=== PATIENT | female | born 1935 | race Caucasian/White ===

== ENCOUNTER 2025-06-06 12:22 | Inpatient (IN) | payer MEDICARE, MEDICAID, SELFPAY ==
[2025-06-06] VITALS (10 sets, daily range): BP systolic 125–162; BP diastolic 90–112; PULSE 96–125; RESP 18–25; TEMP 36.6–37.4; O2SAT 90–98
--- NOTE | 2025-06-06 12:38 | EKG_ITS ---
[facility] Test Date: 2025-06-06 Pat Name: ARETHA SILVEIRA Department: Room: - Gender: Female Gasfitter: : [id number] Requested By: Miguel Larsen (CALVIN) Order Number: [id number] Reading MD: Miguel Larsen ([employer]) Measurements Intervals Topmost Rate: 115 P: NV: QRS: -47 QRSD: 83 T: 107 QT: 315 QTc: 436 Interpretive Statements ATRIAL FIBRILLATION WITH RAPID VENTRICULAR RESPONSE LEFT ANTERIOR FASCICULAR BLOCK [QRS AXIS <= -45, QR IN I, RS IN II] MODERATE VOLTAGE CRITERIA FOR LVH, CONSIDER NORMAL VARIANT [MEETS CRITERIA IN ONE OF: R(aVL), S(V1), R(V5), R(V5/V6)+S(V1)] ST DEVIATION AND MODERATE T-WAVE ABNORMALITY, CONSIDER LATERAL ISCHEMIA [-0.1+ mV T-WAVE IN I/aVL/V5/V6] No previous ECG available for comparison /store/S0/[id number].pdf
--- NOTE | 2025-06-06 12:42 | XR_ITS ---
Examination: AP chest single view Technique one AP portable upright chest single view Date and time: June 06, 2025, 1251 hours INDICATIONS: Chest pain difficulty breathing today. FINDINGS: Mild heart failure Mild enlargement cardiac contour. Prominent vascular congestion with perihilar basilar edema Prominent osteopenia with advanced osteoarthritis left glenohumeral joint IMPRESSION: Mild heart failure
[2025-06-06 13:28] LABS: Basophils # (Auto) 0.0 Thou/mm3 (0.0-0.2); Basophils % (Auto) 1 % (0-2.5); Eosinophils # (Auto) 0.0 Thou/mm3 (0.0-0.5); Eosinophils % (Auto) 0 % (0-10); Hematocrit 41.7 % (36.0-46.0); Hemoglobin 13.3 g/dL (12.0-16.0); Immature Granulocytes Auto 0.05 Thou/mm3 (0.00-0.00); Lymphocytes # (Auto) 0.9 Thou/mm3 (1.0-4.8); Lymphocytes % (Auto) 11 % (10-50); Mean Corpuscular HGB Conc 31.9 g/dl (31.0-37.0); Mean Corpuscular Hemoglobin 29.2 pg (25.0-35.0); Mean Corpuscular Volume 91 fL (80-100); Monocytes # (Auto) 0.5 Thou/mm3 (0.0-0.8); Monocytes % (Auto) 6 % (0-12); Neutrophils # (Auto) 6.8 Thou/mm3 (1.8-7.7); Neutrophils % (Auto) 83 % (37-80); Nucleated Red Blood Cell # 0.00 Thou/mm3 (0.00-0.00); Nucleated Red Blood Cell % 0 /100 WBC (0); Platelet Count 168 Thou/mm3 (140-440); RDW Standard Deviation 43.4 fL (36.4-46.3); Red Blood Count 4.56 Miln/mm3 (4.00-5.20); White Blood Count 8.3 Thou/mm3 (3.6-11.0)
[2025-06-06 13:42] LABS: INR 1.1 (0.9-1.3); Partial Thromboplastin Time 27.5 Seconds (22.0-36.0); Prothrombin Time 11.6 Seconds (9.0-12.2)
[2025-06-06 13:53] LABS: B-Type Natriuretic Peptide 770 pg/mL (0-100)
[2025-06-06 13:59] LABS: Alanine Aminotransferase 8 U/L (10-49); Albumin, Serum 4.4 gm/dL (3.4-4.8); Albumin/Globulin Ratio 1.8 (1.2-2.2); Alkaline Phosphatase 55 U/L (46-116); Anion Gap 9 (7-16); Aspartate Amino Transferase 13 U/L (0-34); BUN/Creatinine Ratio 14 Ratio (12-20); Bilirubin,Total 0.7 mg/dL (0.3-1.2); Blood Urea Nitrogen 13 mg/dL (9-23); Calcium 9.5 mg/dL (8.3-10.6); Calcium (Corrected) 9.5 mg/dL (8.5-10.1); Carbon Dioxide 28.3 mMol/L (20.0-31.0); Chloride 103 mMol/L (98-107); Creatinine (Component) 0.9 mg/dL (0.6-1.3); Estimated Creatinine Clearance 48.6 mL/min (>60); Globulin 2.4 gm/dL (2.3-3.5); Glucose 157 mg/dL (74-106); Magnesium 1.9 mg/dL (1.6-2.6); Osmolality,Calculated 282 (275-295); Potassium 4.0 mMol/L (3.4-5.1); Sodium 140 mMol/L (136-145); Total Protein 6.8 gm/dL (5.7-8.2); Troponin I < 0.020 ng/mL (0.0-0.045); eGFR > 60 See Note
[2025-06-06 14:30] LABS: Collection Type, Urine Clean Catch
[2025-06-06 14:57] LABS: Bacteria,Urine 3+; Bilirubin,Urine Negative (Negative); Blood,Urine 1+ (Negative); Clarity,Urine Turbid (Clear/Hazy); Color,Urine Yellow (Lt Yel-Yel); Glucose, Urine Negative (Negative); Hyaline Casts,Urine < 1 /hpf (0-1); Ketones,Urine Trace (Negative); Leukocyte Esterase,Urine Positive (Negative); Nitrite,Urine Positive (Negative); PH,Urine 5.5 (5.0-7.0); Protein,Urine 1+ (Neg - Trace); RBC,Urine 1 /hpf (0-3); Specific Gravity,Urine 1.018 (1.001-1.035); Squamous Epithelial Cell,Urine 3 /hpf (0-5); Urobilinogen,Urine Negative mg/dL (0.0-1.0); WBC,Urine 41 /hpf (0-5)
--- NOTE | 2025-06-06 15:08 | EDNOTE_ITS ---
ED SOB =RME/HPI General Chief Complaint: Shortness of Breath/Dyspnea Stated Complaint: DIFF BREATHING, FATIGUE, N/V/D Time Seen by Provider: 06/06/25 12:51 Arrival date/time: 06/06/25 12:22 Limitations: no limitations RME / HPI RME / HPI Narrative: 89 year old female with history of hypertension presents to the ED BIBA from home for evaluation of global weakness, shortness of breath, body aches, and nausea beginning today while laying in bed. Reportedly was at her usual state of health yesterday. Patients daughter Radha reports other family members in the house are experiencing similar GI symptoms. Patient denies any recent illness or travel. Denies fevers, chills, chest pain, cough, abdominal pain, or urinary symptoms. Related Data Previous Rx's ?Medication ?Instructions ?Recorded hydrocodone 5 mg-acetaminophen 325 1 tab PO BID PRN pa in #10 tabs 09/03/22 mg tablet Allergies Allergy/AdvReac Type Severity Reaction Status Date / Time No Known Allergies Allergy Verified 06/06/25 12:26 Review of Systems Review of Systems Systems Reviewed: All systems reviewed, normal except as documented Past Medical History Past Medical History CARDIAC: Positive Cardiac Disorders and Hypertension MUSCULOSKELETAL: Positive Musculoskeletal Disorders (sciatica) Surgical History SURGICAL: Positive Hip Sx (left hip) OTHER SURGICAL HX: right eye removed x 3yrs ago, patient has prosthetic eye Social History SMOKING STATUS: Former smoker ED Exam General Limitations: Present no limitations General appearance: Present alert and other (appears short of breath, tachypneic ) Head Head exam: Present atraumatic, normocephalic and normal inspection Eye Eye exam: Present normal appearance, PERRL and EOMI ENT ENT exam: Present normal exam, normal oropharynx and mucous membranes moist Neck Neck exam: Present normal inspection, full ROM and trachea midline Chest Chest inspection: Present normal inspection and symmetric chest wall rise Respiratory Respiratory exam: Present normal lung sounds bilaterally Cardiovascular Cardiovascular exam: Present normal rhythm, tachycardia and normal heart sounds Abdominal Exam Abdominal exam: Present soft and normal bowel sounds Extremities Exam Extremities exam: Present normal inspection and full ROM Back Exam Back exam: Present normal inspection and full ROM Neurological Exam Neurological exam: Present alert, oriented X3 and CN II-XII intact Psychiatric Psychiatric exam: Present normal affect and normal mood Skin Skin exam: Present warm, dry, intact and normal color Course Quality Measures none Orders Category Date Time Status Admit to Inpatient Status Routine Admission 06/06/25 16:43 Active Patient Condition Routine Admission 06/06/25 16:43 Ordered Bedside COVID-19 Antigen Test NOW Care 06/06/25 12:42 Active Bedside Influenza A&B Antigen Test NOW Care 06/06/25 12:42 Completed Hydraulic Riveter NOW Care 06/06/25 12:42 Active EKG (ED ONLY) *Do not use* NOW Care 06/06/25 12:38 Completed Flu & Pneumonia Vaccine Screen ONCE Care 06/06/25 16:43 Active In and Out Catheter X1 Care 06/06/25 13:55 Completed Miscellaneous Nursing Order NOW Care 06/06/25 16:43 Active Notify provider NEEDED Care 06/06/25 16:43 Active Sequential Compression Device QSHIFT Care 06/06/25 16:43 Active Consult to Cardiology Stat Cons 06/06/25 16:51 Ordered Diet Cardiac Diet 06/06/25 Dinner Active CA echo doppler complete Routine Exams 06/06/25 16:47 Ordered EKG (ED Only) Stat Exams 06/06/25 12:38 Draft XR chest 1V portable Stat Exams 06/06/25 12:42 Completed B-Type Natriuretic Peptide Stat Lab 06/06/25 13:11 Completed CBC AM DRAW Lab 06/07/25 05:00 Ordered CBC AM DRAW Lab 06/08/25 05:00 Ordered CBC AM DRAW Lab 06/09/25 05:00 Ordered CBC Stat Lab 06/06/25 13:11 Completed Comprehensive Metabolic Panel AM DRAW Lab 06/07/25 05:00 Ordered Comprehensive Metabolic Panel AM DRAW Lab 06/08/25 05:00 Ordered Comprehensive Metabolic Panel AM DRAW Lab 06/09/25 05:00 Ordered Comprehensive Metabolic Panel Stat Lab 06/06/25 13:11 Completed Lipid Panel AM DRAW Lab 06/07/25 05:00 Ordered Magnesium AM DRAW Lab 06/07/25 05:00 Ordered Magnesium Stat Lab 06/06/25 13:11 Completed Partial Thromboplastin Time Stat Lab 06/06/25 13:11 Completed Prothrombin Time with INR Stat Lab 06/06/25 13:11 Completed Thyroid Stimulating Hormone AM DRAW Lab 06/07/25 05:00 Ordered Troponin I Stat Lab 06/06/25 13:11 Completed Urinalysis, C/S if Indicated Stat Lab 06/06/25 14:05 Completed Urine Culture Stat Lab 06/06/25 14:05 Received Acetaminophen Tab [Tylenol Tab] Med 06/06/25 16:50 Active 650 mg PO Q6H PRN Diltiazem Inj [Cardizem Inj] Med 06/06/25 15:35 Discontinued 10 mg IV X1 ONE Metoprolol Succinate Xl [Toprol Xl] Med 06/06/25 17:00 Active 50 mg PO QDAY Ondansetron Inj [Zofran Inj] Med 06/06/25 16:43 Active 4 mg IVP Q6H PRN Pantoprazole Inj [Protonix Inj] Med 06/07/25 09:00 Active 40 mg IVP QDAY Senna [Senokot] Med 06/07/25 09:00 Active 1 tab PO QDAY cefTRIAXone/D5w 1gm IV premix [Rocephin/D5w 1gm IV Med 06/06/25 15:36 Discontinued premix] 1 gm in 50 ml IV STAT Code Status Routine Oth 06/06/25 16:43 Completed Vital Signs Vital signs: Vital Signs Temperature 99.4 F 06/06/25 12:37 Pulse Rate 103 H 06/06/25 12:37 Respiratory Rate 18 06/06/25 12:37 Blood Pressure 156/90 H 06/06/25 12:37 Pulse Oximetry (%) 90 L 06/06/25 12:37 Oxygen Delivery Method Room Air 06/06/25 12:37 Pulse ox is 90% on room air which is low. Shortness of Breath / Dyspnea MDM Narrative MDM Narrative:: Patient is an 89-year-old female with medical history notable for hypertension, that seen emerged from concerns for shortness of breath. Patient had been not feeling well for the last couple days. Vital signs and exam as listed. Concern for COVID, pneumonia, ACS arrhythmia among others. Patient without any lower extremity stomach swelling, has not been coughing up blood has not been immobile does not take any hormonal medications. Ordered labs EKG chest x-ray. Patient is tachycardic, and hypoxic however. Concern for pulmonary embolus. Ordered CT angio of the chest. Patient rhythm is atrial fibrillation. Patient does not have a history of A-fib. Labs without any acute hematologic abnormality, no leukocytosis, patient does have a left shift of 83%. No acute electrolyte abnormalities. No transaminitis. Troponin not elevated. Patient BNP is 770. Previously 111. Patient 15:40h The patient and son-in-law were updated on the results. I shared risk benefit of CT scan with contrast including but not limited to assessment for possible PE with possible risk of contrast induced nephropathy. I shared that I could consult our construction rep given new afib and CHF, and see their recommendation. They have requested to defer to construction rep recommendation, understanding that a pulmonary embolism has not yet been ruled out if CT scan not performed. 15:41h I spoke with construction rep Dr. Herrera patient in new CHF, afib and hypoxia. He recommends holding off on CT scan at this time, believes patient symptoms most consistent with chf, CT with limited benefit. I updated patient, in agreement with plan. I spoke with hospitalist team B regarding admission. Updated daughter and patient, in agreement with treatment plan,. Patient data External records reviewed:: [facility] previous records and EMS form Clinical information provided by:: patient and EMS Social determinants that could affect healthcare access:: none Patient has the following chronic illnesses:: HTN How is presenting disease/condition affected by chronic disease/condition?: exacerbated by Evaluation data The following diagnostics were reviewed and interpreted by me:: lab results, radiology exam(s) and EKG tracing(s) Lab and/or radiology exams considered but not ordered:: None Interpretation Summary: See [facility] Medications / Prescriptions Medications or Prescriptions considered but not ordered:: None Medication administrations:: Medication Administration History Acetaminophen (Acetaminophen 325 Mg Tablet) 650 mg PO Q6H PRN PRN Reason: Fever >101.5 Stop: 07/06/25 16:42 Ceftriaxone Sodium/Dextrose (Rocephin/D5w 1gm Iv Premix) 1 gm in 50 mls @ 100 mls/hr IV QDAY [facility] Stop: 06/14/25 08:59 Metoprolol Succinate (Metoprolol Succinate Xl 25 Mg Tabcr) 50 mg PO QDAY [facility] Stop: 07/06/25 16:59 Last Admin: 06/06/25 17:14 Dose: 50 mg Documented By: CROW Nitrofurantoin Macrocrystals (Nitrofurantoin Macro 100 Mg Capsule) 100 mg PO BID [facility] Stop: 06/13/25 20:59 Ondansetron HCl (Ondansetron Inj 2 Mg/Ml Inj 2 Ml) 4 mg IVP Q6H PRN; Protocol PRN Reason: NAUSEA OR VOMITING Stop: 07/06/25 16:42 Pantoprazole Sodium (Pantoprazole Inj 40 Mg Vial) 40 mg IVP QDAY ISABLELA Stop: 07/07/25 08:59 Sennosides (Senna Tablet) 1 tab PO QDAY ISABELLA; Protocol Stop: 07/07/25 08:59 Discontinued Medications Diltiazem HCl (Diltiazem Inj 5 Mg/Ml Vial 5 Ml) 10 mg IV X1 ONE Stop: 06/06/25 15:36 Last Admin: 06/06/25 16:51 Dose: Not Given Documented By: CROW Non-Admin Reason: Cancelled by Provider Furosemide (Furosemide Inj 10 Mg/Ml 4ml Vial) 40 mg IVP X1 ONE Stop: 06/06/25 18:31 Last Admin: 06/06/25 18:56 Dose: 40 mg Documented By: CROW Ceftriaxone Sodium/Dextrose (Rocephin/D5w 1gm Iv Premix) 1 gm in 50 mls @ 100 mls/hr IV STAT STA Stop: 06/06/25 16:05 Last Infusion: 06/06/25 17:16 Dose: Infused Documented By: Admin: 06/06/25 16:41 Dose: 100 mls/hr Documented By: ANGELES See above Consultations Consultation(s) initiated? (list below): Yes Consultation #1 (Physician, Specialty, Details): See MDM Diagnosis Shortness of Breath Differential Diagnosis: other (See MDM ) Most likely diagnosis given after review of the tests above:: Atrial fibrillation Hypoxic respiratory failure CHF Admission Indicated Admission indicated?: indicated Admission Request Was there a request for admission?: Yes Admission Attestation Admission request attestation: Discussed case with Hospitalist service regarding admission. Discussed patients ED course, exam findings, labs, and radiology results. The Hospitalist [agrees] to accept the patient for admission. Disposition Plan Disposition Plan: Admit Critical Care Time Critical Care Time Critical Care Time: Yes Total Critical Care Time (min.): 35 Attestation: The high probability of sudden, clinically significant deterioration in the patient's condition required the highest level of my preparedness to intervene urgently. The services I provided to this patient were to treat and/or prevent clinically significant deterioration. Services included the following: chart data review, reviewing nursing notes and/or old charts, documentation time, sap business objects consultant collaboration regarding findings and treatment options, medication orders and management, direct patient care, vital sign assessments and ordering, interpreting and reviewing diagnostic studies and lab tests. Aggregate critical care time includes only time during which I was engaged in work directly related to the patient's care, as described above, whether at bedside or elsewhere in the Emergency Department. It did not include time spent performing other reported procedures or the services of residents, students, nurses or physician assistants. Discharge Plan Plan Patient Disposition: Admit Acute Care w/in Hospital Problem List Clinical Impression: Atrial fibrillation, Hypoxic respiratory failure, CHF (congestive heart failure)
[2025-06-06 15:15] LABS: Culture Indicated,Urine Yes
--- NOTE | 2025-06-06 15:19 | PC.NURSE ---
Patient's family concerned about patient's heart rate 108, Dr. Peralta made aware, no new orders received, per Fabian Louie, inform her if patient's HR increases to 140's. Family made aware.
[2025-06-06] MEDS: cefTRIAXone/D5w 1gm IV premix 1 GM/50 ML BAG IV (16:41)
--- NOTE | 2025-06-06 16:47 | ECHO_ITS ---
Transthoracic Echo Report Ht (in): 64 Wt (lb): 212 Exam Location: Echo Lab Status: Emergency Wafer Fab Operator: Mel Price Indications: Procedure Performed: BP: 126 / 98 HR: 101 MEASUREMENTS (Male / Female) Normal Values 2D ECHO LV Diastolic Diameter PLAX 4.8 cm 4.2 - 5.9 / 3.9 - 5.3 cm LV Systolic Diameter PLAX 3.1 cm IVS Diastolic Thickness 1.0 cm 0.6 - 1.0 / 0.6 - 0.9 cm LVPW Diastolic Thickness 1.1 cm 0.6 - 1.0 / 0.6 - 0.9 cm LV Relative Wall Thickness 0.4 LVOT Diameter 1.9 cm LA Volume Index 35.2 cm?/m? 16 - 28 cm?/m? Ascending Aorta Diameter 3.2 cm M-MODE AV Cusp Separation MM 1.3 cm DOPPLER AV Peak Velocity 117.0 cm/s AV Peak Gradient 5.5 mmHg AV Mean Gradient 3.0 mmHg AV Velocity Time Integral 18.8 cm LVOT Peak Velocity 123.0 cm/s LVOT Peak Gradient 6.1 mmHg LVOT Velocity Time Integral 21.8 cm LVOT Cardiac Index 2934.3 cm?/min?m? AV Area Cont Eq vti 3.3 cm? AV Area Cont Eq pk 3.0 cm? MV Area PHT 4.4 cm? Mitral E Point Velocity 101.0 cm/s TR Peak Velocity 235.7 cm/s TR Peak Gradient 22.2 mmHg PV Peak Velocity 100.0 cm/s PV Peak Gradient 4.0 mmHg FINDINGS Left Ventricle Normal left ventricular size, wall thickness, systolic function with no obvious regional wall motion abnormalities.Indeterminate diastolic dysfunction due to A-fib. The ejection fraction is visually estimated at 50-55%. Right Ventricle The right ventricle is normal in size and systolic function. The estimated right ventricular systolic pressure, 42mmHg with RAP 8. Moderate HTN Left Atrium The left atrium is normal by two-dimensional, color flow and Doppler imaging with no structural abnormalities, no thrombus formation present. Right Atrium The right atrium is normal by two-dimensional imaging, color flow and Doppler imaging with no structural abnormalities, no thrombus formation present. Atrial Septum The interatrial septum appears normal with no evidence of a shunt. Aorta The aorta is normal by two-dimensional, color flow and Doppler interrogation. Mitral Valve Mitral annular calcification. Trace to mild mitral regurgitation. Aortic Valve Aortic valve sclerosis without stenosis.Trace aortic valve regurgitation. Tricuspid Valve The tricuspid valve is normal by two-dimensional, color flow and Doppler interrogation. There is mild tricuspid valve regurgitation. Pulmonic Valve The pulmonic valve is not well visualized. Trivial pulmonic valve regurgitation. Vessels The pulmonary artery appears normal. The inferior vena cava pulmonary and hepatic veins appear normal. Pericardium The pericardium is normal by two-dimensional imaging. There is no significant pericardial effusion. Other Findings TDS due to poor windows CONCLUSIONS Indication: new onset of afib Normal left ventricular size and function. Approximate ejection fraction is 50- 55%. Normal right ventricular size and function. RVSP 42 mmHg with RAP 8. Moderate HTN Aortic valve sclerosis without stenosis mild MAC with Mild MR mild tricuspid regurgitation Maite Garduno (Electronically Signed) Final Date: 07 June 2025 16:37
--- NOTE | 2025-06-06 17:08 | ESCONSULT_ITS ---
<Statement entered by Nanci Herrera MD - 06/08/25 10:06> I personally evaluated examined the patient and emergency room patient is elderly female with known history of hypertension but not known to have atrial fibrillation initially followed by clinic physician esol teacher assistant came to the hospital severe shortness of breath appears to be congestive heart failure atrial fibrillation with small left pleural effusion as well. A-fib rate is controlled but she was on beta-binta at home but heart rate is not controlled well. Patient's improving with diuretic recommend continuing diuretic therapy will get a cardiac echo and evaluate the patient rate control with beta-blockers anticoagulation with Eliquis is recommended evaluated patient with resident physician Dr. Jose Lopez PGY2 and agree with the treatment plan recommendation as documented and I was present in the evaluation the patient and management.I do not see any indication for CTA since I do not see any clinical suspicion for pulmonary embolism. HPI Data of Consult Consult date: 06/06/25 Requesting Physician: Anthony Deshpande DO Admitting Provider: Anthony Deshpande DO Attending Provider: Nanci Herrera MD Primary Care Provider: Jeremy Lopez MD Consult Narrative Reason for consult: New onset Atrial fibrillation with RVR History of present illness: 89-year-old female with past medical history of hypertension, chronic back pain presents to the ED due to progressive shortness of breath. Patient states she has been having progressive shortness of breath for about a month now used to be able to go up and down the stairs however unable to at this time. For the past 4 days however patient notices started to feel palpitations in her heart as well as increased shortness of breath. She also endorses that is unable to lay flat on the bed as she wakes up gasping for air currently uses 2 pillows at home but also attributes it to her chronic back pain. She had cardiac work up around 7 years ago for a hip replacement surgery was found with negative work up at that time, per patient. In the ED patient was noted to have irregular rhythm found to have Atrial fibrillation with rate in the 110-130s. Cardiology was consulted. ED course: BP 156/90 mmHg, pulse rate 103 bpm, SpO2 90% on room air, Labs significant for BNP 770. Urinalysis is significant for turbid urine, 1+ proteinuria, 1+ blood, 41 WBC, 3+ bacteria, Chest x-ray done at the time of admission showed mild enlargement in cardiac contour, EKG showed atrial fibrillation with rapid ventricular rate PMHx: Hypertension, chronic back pain SxHx: Right hip replacement Social hx: Lives with the family, retired. Denies smoking, alcohol, other illicit drug abuse Allergies: NKDA cc:: cc: Anthony Stringergle, DO Exam Vital Signs Temp Pulse Resp BP Pulse Ox O2 Del Method O2 Flow Rate 98.1 F 98 20 127/94 H 95 Nasal Cannula 4 06/06/25 16:01 06/06/25 16:54 06/06/25 16:01 06/06/25 16:01 06/06/25 16:01 06/06/25 16:01 06/06/25 16:01 Narrative Exam Physical Exam GENERAL: NAD, AAOx3 HEENT: Moist mucosa. Eyes open, symmetrical, & clear, +JVD, hepatojugular reflux CARDIO: Heart irregularly irregular, no obvious murmurs PULM: No noted coughing/dyspnea CTA B/L, no R/W/R GI: Abdomen soft, nondistended, no pain on palpation. BSx4 SKIN/MSK/EXT:mild bilateral lower extremity swelling, no pain on palpation. Pedal pulses present B/L NEURO: AAOx3, no focal neuro deficits, able to move all 4 extremities Results Labs 06/06/25 13:11 06/06/25 13:11 Labs: Short CBC 06/06/25 Range/Units 13:11 WBC 8.3 (3.6-11.0) Thou/mm3 Hgb 13.3 (12.0-16.0) g/dL Hct 41.7 (36.0-46.0) % Plt Count 168 (140-440) Thou/mm3 BMP 06/06/25 13:11 Sodium 140 Potassium 4.0 Chloride 103 Carbon Dioxide 28.3 BUN 13 Creatinine 0.9 Glucose 157 H Calcium 9.5 Cardiac Enzymes 06/06/25 Range/Units 13:11 Troponin I < 0.020 (0.0-0.045) ng/mL Liver Function 06/06/25 Range/Units 13:11 Total Bilirubin 0.7 (0.3-1.2) mg/dL AST 13 (0-34) U/L ALT 8 L (10-49) U/L Alkaline Phosphatase 55 (46-116) U/L Albumin 4.4 (3.4-4.8) gm/dL Urine 06/06/25 Range/Units 14:05 Urine Color Yellow (Lt Yel-Yel) Urine Clarity Turbid A (Clear/Hazy) Urine pH 5.5 (5.0-7.0) Ur Specific [place] 1.018 (1.001-1.035) Urine Protein 1+ A (Neg - Trace) Urine Glucose (UA) Negative (Negative) Quality Measures Quality Measures VTE prophylaxis Advance care planning discussed with:: patient and child Medications Home Medications and Allergies Allergies Allergy/AdvReac Type Severity Reaction Status Date / Time No Known Allergies Allergy Verified 06/06/25 12:26 Visit Medications Acetaminophen (Acetaminophen 325 Mg Tablet) 650 mg PO Q6H PRN PRN Reason: Fever >101.5 Stop: 07/06/25 16:42 Metoprolol Succinate (Metoprolol Succinate Xl 25 Mg Tabcr) 50 mg PO QDAY ISABELLA Stop: 07/06/25 16:59 Nitrofurantoin Macrocrystals (Nitrofurantoin Macro 100 Mg Capsule) 100 mg PO BID ISABELLA Stop: 06/13/25 20:59 Ondansetron HCl (Ondansetron Inj 2 Mg/Ml Inj 2 Ml) 4 mg IVP Q6H PRN; Protocol PRN Reason: NAUSEA OR VOMITING Stop: 07/06/25 16:42 Pantoprazole Sodium (Pantoprazole Inj 40 Mg Vial) 40 mg IVP QDAY ISABELLA Stop: 07/07/25 08:59 Sennosides (Senna Tablet) 1 tab PO QDAY ISABELLA; Protocol Stop: 07/07/25 08:59 Discontinued Medications Diltiazem HCl (Diltiazem Inj 5 Mg/Ml Vial 5 Ml) 10 mg IV X1 ONE Stop: 06/06/25 15:36 Last Admin: 06/06/25 16:51 Dose: Not Given Ceftriaxone Sodium/Dextrose (Rocephin/D5w 1gm Iv Premix) 1 gm in 50 mls @ 100 mls/hr IV STAT STA Stop: 06/06/25 16:05 Last Admin: 06/06/25 16:41 Dose: 100 mls/hr Assessment & Plan Plan 89-year-old old female with significant past medical history of hypertension, chronic back pain was brought to the hospital with chief complaints of shortness of breath, fatigue since 4 days and New onset Afib. #New onset Atrial fibrillation with RVR #Congestive heart failure #Hypertension Patient did endorse shortness of breath and palpitations, has +JVD and + hepatojugular reflux, orthopnea EKG showed Atrial fibrillation with RVR rate 110-130s CHADVASC: 5; 7.2% stroke risk per year, , Age more than 75, female gender, diabetes (A1c 6.4), history of hypertension HASBLED: 1; low risk of major bleeding Likely caused by acute infection and UTI ? Agree with metoprolol 50 mg daily for rate control ? Start Eliquis 2.5 mg twice daily for stroke prevention ? Monitor telemetry ? Lasix 40 mg IV x1 given, can continue daily, based on clinical response ? Follow-up echo ? Keep K>4, Mg>2 ? Strict I&O's ? Fluid restriction ? Follow-up TSH, lipid panel, A1c # Acute hypoxic respiratory failure # Urinary tract infection - as per primary team Case discussed with my attending Dr. Javier Lopez MD PGY-2 Disclaimer: Despite multiple revisions, due to the dictation software being used, the document bellow may not be free of grammatical errors including phonetic/typographic errors. However, this does not deter from our commitment to providing health care in the patient's best interest in mind.
--- NOTE | 2025-06-06 17:11 | PD.RESHP ---
Documentation for date of: 06/06/25 HPI History of Present Illness Chief complaint: Increased fatiguability History of present illness: A 89-year-old old female with significant past medical history of hypertension, chronic back pain was brought to the hospital with chief complaints of shortness of breath, fatigue since 4 days. At baseline, patient is able to walk with the help of walker and is able to do her routine daily activities. But since 4 days, the patient is feeling weak, also reported that she feels thumping in her heart and mild shortness of breath but still unable to do her routine daily activities but since last night, patient noted to have dry heaving and noted increased fatigability for which she came to the hospital. Endorsed that her family members got COVID infection couple of weeks ago and got sick. Denies fever, vomitings, palpitations, lower extremity swelling, PND, orthopnea, burning micturition, cough, abdominal pain. Patient reported that she saw a yard labor supervisor 7 years ago for preop cardiac clearance for hip replacement and at that time cardiac workup was done which did not show any significant abnormality. Cardiac cath was not done at that time. ED course: - Vitals at the time of admission are significant for blood pressure 156/90 mmHg, pulse rate 103 bpm, SpO2 90% with room air - Labs done at the time of admission are significant for BNP 770. - Urinalysis is significant for turbid urine, 1+ proteinuria, 1+ blood, 41 WBC, 3+ bacteria - Chest x-ray done at the time of admission showed mild enlargement in cardiac control - EKG done at the time of admission showed atrial fibrillation with rapid ventricular rate with T wave inversions in 1, aVL and poor R wave progression. Past medical history: Hypertension, chronic back pain Past surgical history: Right hip replacement Social history: Lives with the family, retired. Denies smoking, alcohol, other illicit drug abuse Allergies: NKDA Review of Systems Review of Systems Systems Reviewed: All systems reviewed, normal except as documented Exam Vital Signs Temp Pulse Resp BP Pulse Ox O2 Del Method O2 Flow Rate 98.1 F 98 20 127/94 H 95 Nasal Cannula 4 06/06/25 16:01 06/06/25 16:54 06/06/25 16:01 06/06/25 16:01 06/06/25 16:01 06/06/25 16:01 06/06/25 16:01 Narrative Exam General: Awake. obese HEENT: Normocephalic, atraumatic, mucous membranes moist. Heart: Irregular rate and rhythm, No murmurs Lungs: Clear to auscultation with no wheezing or crackles. Abdomen: Soft, nondistended, nontender, positive bowel sounds. ?No guarding or rebound tenderness. Neurologic: Alert and oriented x3, no gross neurological deficit, and patient able to move all 4 extremities. Extremities: No edema. Skin: No rash or ecchymoses. Results: Labs 06/07/25 04:42 06/07/25 04:42 Labs: Short CBC 06/06/25 Range/Units 13:11 WBC 8.3 (3.6-11.0) Thou/mm3 Hgb 13.3 (12.0-16.0) g/dL Hct 41.7 (36.0-46.0) % Plt Count 168 (140-440) Thou/mm3 BMP 06/06/25 13:11 Sodium 140 Potassium 4.0 Chloride 103 Carbon Dioxide 28.3 BUN 13 Creatinine 0.9 Glucose 157 H Calcium 9.5 Cardiac Enzymes 06/06/25 Range/Units 13:11 Troponin I < 0.020 (0.0-0.045) ng/mL Liver Function 06/06/25 Range/Units 13:11 Total Bilirubin 0.7 (0.3-1.2) mg/dL AST 13 (0-34) U/L ALT 8 L (10-49) U/L Alkaline Phosphatase 55 (46-116) U/L Albumin 4.4 (3.4-4.8) gm/dL Urine 06/06/25 Range/Units 14:05 Urine Color Yellow (Lt Yel-Yel) Urine Clarity Turbid A (Clear/Hazy) Urine pH 5.5 (5.0-7.0) Ur Specific [place] 1.018 (1.001-1.035) Urine Protein 1+ A (Neg - Trace) Urine Glucose (UA) Negative (Negative) Quality Measures Quality Measures VTE prophylaxis Advance care planning discussed with:: patient Medications Home Medications and Allergies Home Medications ?Medication ?Instructions ?Recorded ?Confirmed ?Type amlodipine 5 mg-benazepril 20 mg 1 cap PO DAILY 06/07/25 06/07/25 History capsule atenolol 50 mg tablet 50 mg PO Q24H 06/07/25 06/07/25 History hydrocodone 7.5 mg-acetaminophen 1 tab PO Q12H PRN pain 06/07/25 06/07/25 History 325 mg tablet ibuprofen 800 mg tablet 800 mg PO DAILY PRN pain 06/07/25 06/07/25 History Allergies Allergy/AdvReac Type Severity Reaction Status Date / Time No Known Allergies Allergy Verified 06/06/25 12:26 Visit Medications Acetaminophen (Acetaminophen 325 Mg Tablet) 650 mg PO Q6H PRN PRN Reason: Fever >101.5 Stop: 07/06/25 16:42 Metoprolol Succinate (Metoprolol Succinate Xl 25 Mg Tabcr) 50 mg PO QDAY ISABELLA Stop: 07/06/25 16:59 Nitrofurantoin Macrocrystals (Nitrofurantoin Macro 100 Mg Capsule) 100 mg PO BID ISABELLA Stop: 06/13/25 20:59 Ondansetron HCl (Ondansetron Inj 2 Mg/Ml Inj 2 Ml) 4 mg IVP Q6H PRN; Protocol PRN Reason: NAUSEA OR VOMITING Stop: 07/06/25 16:42 Pantoprazole Sodium (Pantoprazole Inj 40 Mg Vial) 40 mg IVP QDAY ISABELLA Stop: 07/07/25 08:59 Sennosides (Senna Tablet) 1 tab PO QDAY ISABELLA; Protocol Stop: 07/07/25 08:59 Discontinued Medications Diltiazem HCl (Diltiazem Inj 5 Mg/Ml Vial 5 Ml) 10 mg IV X1 ONE Stop: 06/06/25 15:36 Last Admin: 06/06/25 16:51 Dose: Not Given Ceftriaxone Sodium/Dextrose (Rocephin/D5w 1gm Iv Premix) 1 gm in 50 mls @ 100 mls/hr IV STAT STA Stop: 06/06/25 16:05 Last Admin: 06/06/25 16:41 Dose: 100 mls/hr Assessment & Plan Plan A 89-year-old old female with significant past medical history of hypertension, chronic back pain was brought to the hospital with chief complaints of shortness of breath, fatigue since 4 days and New onset Afib. #New onset atrial fibrillation - Likely in the setting of flulike illness and suspected urinary tract infection - Patient denies any previous history of cardiac disease, atrial fibrillation - Presented to the hospital with chief complaint of fatigability and dry heaving since 4 days - Reported that she had recent exposure to sick contacts in the family and had COVID infection - Vitals at the time of admission are significant for blood pressure 156/90 mmHg, pulse rate 103 bpm - On physical examination, patient noted to have irregular heart rate - EKG at the time of admission showed atrial fibrillation with rapid ventricular rate - [id number] score is 3 Plan - Cardiology, Dr. Herrera is consulted - Received 10 mg of diltiazem in the ED - Started on metoprolol 50 mg once daily as of now as the patient's heart rate is well-controlled - TSH, A1c, Lipid profile is ordered - Started on Eliquis 2.5 mg twice daily # Respiratory distress #?heart failure - At baseline, patient was not using any oxygen - Endorsed that she is having shortness of breath since 1 week - Reported that she is having difficulty lying on her back - Patient is currently saturating around 95% on 4 L oxygen Plan - Strict I&O's are ordered - Fluid restriction to 1800 cc - 1 dose of Lasix 40 mg IV push is ordered - Will continue monitoring urine output and will add Lasix as needed - Will follow up with echocardiogram # Urinary tract infection - Patient did not complain of any burning micturition - Noted to have turbid urine with 1+ proteinuria, 41 WBC on urine analysis with 3+ bacteriuria Plan - Urine cultures were sent - Patient received 1 g of ceftriaxone in the ED - Started on nitrofurantoin 100 mg twice daily for 2 more days # History of hypertension - Blood pressure at the time of admission is 146/90 mmHg - Patient is using amlodipine and benazepril combination - Noted to have blood pressure within normal limits Plan - Will continue to monitor blood pressures - Will add medications accordingly Hospital Maintenance: Dispo: Tele DVT ppx: Eliquis GI ppx: Protonix Diet: cardiac IV lines: peripheral Code status: DNR I have personally seen and examined the patient, agree with residents assessment and plan Patient plan of care was discussed with the attending physician, Dr. Jeramy Radford, PGY2 Attending Provider Attestation/Addendum After examination of the patient and review of the clinical data I feel that this patient needs admission to the hospital for further treatment/evaluation. I have discussed and was present for the essential components of the history, physical examination, diagnosis, and treatment plan with the resident. I agree with the patient's care as documented by the resident and amended herein by me. Arnulfo Deshpande DO. Although this document has been carefully reviewed, there may still be some phonetic and other typographical errors. These errors are purely grammatical due to imperfections in the software program and should not be construed in any way to compromise the substance of the patient's medical care during this visit.
[2025-06-06] MEDS: METOPROLOL SUCCINATE XL 25 MG TABCR 50 MG PO (17:14)
[2025-06-06 17:40] LABS: Glucose Estimated Average 137 mg/dL (80-131); Hemoglobin A1C 6.4 % Hgb (4.8-6.0)
[2025-06-06] MEDS: FUROSEMIDE INJ 10 MG/ML 4ML VIAL 40 MG IVP (18:56)
--- NOTE | 2025-06-06 18:57 | PC.NURSE ---
Dr. Delaney at bedside
--- NOTE | 2025-06-06 20:00 | PC.NURSE ---
Pt reports making decision for DNR code status in ED but would like more information, referral to professor of social work in place for advanced directive
[2025-06-06] MEDS: NITROFURANTOIN MACRO 100 MG CAPSULE PO (21:48)
[2025-06-06] MEDS: MELATONIN 3 MG TABLET 6 MG PO (21:48)
--- NOTE | 2025-06-06 23:29 | PC.NURSE ---
MD Jauregui notified pt's BP 156/109, orders received to monitor vitals and notify MD if HR is 120 and SBP 180
[2025-06-06] MEDS: LIDOCAINE 5% 1 PATCH TOP (23:50)
[2025-06-07] VITALS (9 sets, daily range): BP systolic 106–156; BP diastolic 74–109; PULSE 88–117; RESP 17–24; TEMP 35.9–36.6; O2SAT 90–96; BMI 36.3
[2025-06-07 05:28] LABS: Basophils # (Auto) 0.0 Thou/mm3 (0.0-0.2); Basophils % (Auto) 0 % (0-2.5); Eosinophils # (Auto) 0.1 Thou/mm3 (0.0-0.5); Eosinophils % (Auto) 1 % (0-10); Hematocrit 39.3 % (36.0-46.0); Hemoglobin 12.6 g/dL (12.0-16.0); Immature Granulocytes Auto 0.05 Thou/mm3 (0.00-0.00); Lymphocytes # (Auto) 0.9 Thou/mm3 (1.0-4.8); Lymphocytes % (Auto) 9 % (10-50); Mean Corpuscular HGB Conc 32.1 g/dl (31.0-37.0); Mean Corpuscular Hemoglobin 29.2 pg (25.0-35.0); Mean Corpuscular Volume 91 fL (80-100); Monocytes # (Auto) 0.7 Thou/mm3 (0.0-0.8); Monocytes % (Auto) 7 % (0-12); Neutrophils # (Auto) 8.2 Thou/mm3 (1.8-7.7); Neutrophils % (Auto) 82 % (37-80); Nucleated Red Blood Cell # 0.00 Thou/mm3 (0.00-0.00); Nucleated Red Blood Cell % 0 /100 WBC (0); Platelet Count 188 Thou/mm3 (140-440); RDW Standard Deviation 41.8 fL (36.4-46.3); Red Blood Count 4.31 Miln/mm3 (4.00-5.20); White Blood Count 9.9 Thou/mm3 (3.6-11.0)
[2025-06-07 06:08] LABS: Alanine Aminotransferase < 7 U/L (10-49); Albumin, Serum 4.1 gm/dL (3.4-4.8); Albumin/Globulin Ratio 1.7 (1.2-2.2); Alkaline Phosphatase 52 U/L (46-116); Anion Gap 10 (7-16); Aspartate Amino Transferase 12 U/L (0-34); BUN/Creatinine Ratio 15 Ratio (12-20); Bilirubin,Total 0.7 mg/dL (0.3-1.2); Blood Urea Nitrogen 12 mg/dL (9-23); Calcium 9.3 mg/dL (8.3-10.6); Calcium (Corrected) 9.3 mg/dL (8.5-10.1); Carbon Dioxide 32.0 mMol/L (20.0-31.0); Cardiac Risk Estimate 2.7 RATIO (3.7-5.6); Chloride 99 mMol/L (98-107); Cholesterol 156 mg/dL (132-200); Creatinine (Component) 0.8 mg/dL (0.6-1.3); Estimated Creatinine Clearance 54.6 mL/min (>60); Globulin 2.4 gm/dL (2.3-3.5); Glucose 154 mg/dL (74-106); HDL Cholesterol 57 mg/dL (40-60); LDL Cholesterol,Calculated 82 mg/dL (0-130); Magnesium 1.8 mg/dL (1.6-2.6); Osmolality,Calculated 283 (275-295); Potassium 3.6 mMol/L (3.4-5.1); Sodium 141 mMol/L (136-145); Thyroid Stimulating Hormone 1.64 uIU/mL (0.55-4.78); Total Protein 6.5 gm/dL (5.7-8.2); Triglycerides 86 mg/dL (30-150); eGFR > 60 See Note
[2025-06-07] MEDS: APIXABAN 2.5 MG TABLET PO (08:58)
[2025-06-07] MEDS: FUROSEMIDE INJ 10 MG/ML VIAL 2 ML 40 MG IVP (08:59)
[2025-06-07] MEDS: cefTRIAXone/D5w 1gm IV premix 1 GM/50 ML BAG IV (09:01)
[2025-06-07] MEDS: Magnesium Sulfate 2 GM Ivpb 2 GM/50 ML BAG IV (09:37)
--- NOTE | 2025-06-07 10:10 | PC.SS ---
Addendum entered by CHANEL Headley 06/07/25 16:25: BOLT SAWYER was notified by Les RENDON that patient will need SNF vs HH. BOLT SAWYER met with patient at bedside to discuss options, patient stated that she is aware it was recommended but she needs more time to think about her options, BOLT SAWYER informed patient that if she goes home with HH she will need PT and oxygen. Patient would like more time to decide. Addendum entered by CHANEL Headley 06/07/25 10:19: Ss update: cardio rec. and echo pending. Original Note: Patient is an 89 year old female presenting to the hospital for new onset afib. BOLT SAWYER met with patient and patient son at bedside. BOLT SAWYER explained role and reason for visit. Patient reported she lives at home with her daughter and granddaughter, patient confirmed demographic information. Patient stated that in case she is unable to make medical decisions on her own she would like her daughter Valeria Regalado to make them. Patient stated she is unemployed, no dialysis, no diabetes, has a walker, no home oxygen, uses walker to complete ADL?s. Patient stated that her PCP is Dr. Pacheco at [facility]. Her last appointment was in April. Her pharmacy of choice is [facility] [address]. Patient stated that once medically clear she would like to return home and her son or daughter can provide transportation. PCP: Dr. Pacheco ?Decision maker: Valeria Regalado PH: [phone] D/c: home
--- NOTE | 2025-06-07 11:54 | ESPR_ITS ---
<Statement entered by Jonathon Koo MD - 06/07/25 14:03> Patient seen and assessed in hospital bed still requiring supplemental oxygenation; moreover, patient is responsive to diuretics with 1 L of urine out and net -700 cc in 24 hours. Continue to diurese the patient and echo is ordered. Cardiology has been consulted and is following the patient, appreciate recommendations. Will continue to treat the patient with IV ceftriaxone for suspected urinary tract infection as the patient had episode of hypothermia noted today. Will continue monitor the patient for any acute changes. I have personally seen and examined the patient. I agree with the resident's assessment and plan as documented below. Jonathon Koo DO PGY-2 Internal Medicine - [facility] Documentation for date of: 06/07/25 Subjective Subjective Interval history: No acute overnight events. Patient continues to be in A-fib on telemetry, no episodes of increased heart rate. No new complaints this morning. Denies palpitations, shortness of breath. Saturating well but continues to require at least 2 L of oxygen. Net -700 cc of fluid s/p Lasix 40 x 1 yesterday. Will continue to diurese as patient still has pitting edema and requiring oxygen, suspect pulmonary edema. Dampproofer Dr. Herrera consulted, continue metoprolol 50 mg daily, Lasix 40 mg IV daily, and Eliquis 2.5 mg daily. Pending echo. Patient does not have a contamination consultant, has PCP Dr. Lopez. COVID test negative. Will continue to treat UTI with IV ceftriaxone 1 g, pending urine cultures. Anticipate discharge after echo taken. Exam Vital Signs Temp Pulse Resp BP Pulse Ox O2 Del Method O2 Flow Rate 97.6 F 117 H 17 126/98 H 95 Nasal Cannula 3 06/07/25 08:00 06/07/25 08:59 06/07/25 08:00 06/07/25 08:59 06/07/25 08:00 06/07/25 08:00 06/07/25 08:00 Narrative Exam Physical Exam General: Awake and in no acute distress. Conversational. Obese. Pleasant elderly woman. HEENT: Normocephalic, atraumatic, mucous membranes moist. Heart: Irregular rate and rhythm, normal S1 and S2, no murmurs appreciated. Lungs: Clear to auscultation with no wheezing or crackles. Abdomen: Soft, nondistended, nontender, positive bowel sounds. No guarding or rebound tenderness. Neurologic: Alert and oriented x3, no gross neurological deficit, and patient able to move all 4 extremities. Extremities: 1+ pitting edema bilaterally below knees. Skin: No rash or ecchymoses. Objective Labs 06/08/25 05:05 06/08/25 05:05 Labs: Laboratory Results - last 24 hr 06/06/25 06/06/25 06/07/25 13:11 14:05 04:42 WBC 8.3 9.9 RBC 4.56 4.31 Hgb 13.3 12.6 Hct 41.7 39.3 MCV 91 91 MCH 29.2 29.2 MCHC 31.9 32.1 RDW Std Deviation 43.4 41.8 Plt Count 168 188 Neut % (Auto) 83 H 82 H Lymph % (Auto) 11 9 L [place] % (Auto) 6 7 Eos % (Auto) 0 1 Baso % (Auto) 1 0 Neut # (Auto) 6.8 8.2 H Lymph # (Auto) 0.9 L 0.9 L [place] # (Auto) 0.5 0.7 Eos # (Auto) 0.0 0.1 Baso # (Auto) 0.0 0.0 Immature Gran # (Auto) 0.05 H 0.05 H Absolute Nucleated RBC 0.00 0.00 Immature Gran % 1 H 1 H Nucleated RBC % 0 0 PT 11.6 INR 1.1 APTT 27.5 Sodium 140 141 Potassium 4.0 3.6 Chloride 103 99 Carbon Dioxide 28.3 32.0 H Anion Gap 9 10 BUN 13 12 Creatinine 0.9 0.8 Estim Creat Clear Calc 48.6 L 54.6 L eGFR > 60 > 60 BUN/Creatinine Ratio 14 15 Glucose [address] Glu mg/dL 137 H Hemoglobin A1c 6.4 H Calculated Osmolality 282 283 Calcium 9.5 9.3 Corrected Calcium 9.5 9.3 Magnesium 1.9 1.8 Total Bilirubin 0.7 0.7 AST 13 12 ALT 8 L < 7 L Alkaline Phosphatase 55 52 Troponin I < 0.020 B-Natriuretic Peptide 770 H* Total Protein 6.8 6.5 Albumin 4.4 4.1 Globulin 2.4 2.4 Albumin/Globulin Ratio 1.8 1.7 Triglycerides 86 Cholesterol 156 LDL Cholesterol, Calc 82 HDL Cholesterol 57 Cholesterol/HDL Ratio 2.7 L TSH 1.64 Ur Collection Type Clean Catch Urine Color Yellow Urine Clarity Turbid A Urine pH 5.5 Ur Specific [place] 1.018 Urine Protein 1+ A Urine Glucose (UA) Negative Urine Ketones Trace Urine Blood 1+ A Urine Nitrite Positive Urine Bilirubin Negative Urine Urobilinogen (Auto) Negative Ur Leukocyte Esterase Positive Urine RBC 1 Urine WBC 41 H Ur Squamous Epith Cells 3 Urine Bacteria 3+ A Hyaline Casts < 1 Ur Culture Indicated? Yes Quality Measures Quality Measures VTE prophylaxis Advance care planning discussed with:: patient Assessment & Plan Assessment Current Active Medications: Generic Name Dose Route Start Last Admin Trade Name Freq PRN Reason Stop Dose Admin Acetaminophen 650 mg 06/06/25 16:50 Acetaminophen 325 Mg Tablet PO 07/06/25 16:42 Q6H PRN Fever >101.5 Apixaban 2.5 mg 06/07/25 09:00 06/07/25 08:58 Apixaban 2.5 Mg Tablet PO 07/07/25 08:59 2.5 mg BID ISABELLA Administration Carvedilol 12.5 mg 06/07/25 08:00 06/07/25 08:57 Carvedilol 12.5 Mg Tablet PO 07/07/25 07:59 12.5 mg BIDWM ISABELLA Administration Furosemide 40 mg 06/07/25 09:00 06/07/25 08:59 Furosemide Inj 10 Mg/Ml Vial 2 Ml IVP 07/07/25 08:59 40 mg QDAY ISABELLA Administration Ceftriaxone Sodium/Dextrose 1 gm in 50 mls @ 100 mls/hr 06/07/25 09:00 06/07/25 09:01 Rocephin/D5w 1gm Iv Premix IV 06/14/25 08:59 100 mls/hr QDAY ISABELLA Administration Lidocaine 1 patch 06/07/25 07:19 Lidocaine 5% 1 Patch TOP X1 PRN pain 7-10 Ondansetron HCl 4 mg 06/06/25 16:43 Ondansetron Inj 2 Mg/Ml Inj 2 Ml IVP 07/06/25 16:42 Q6H PRN NAUSEA OR VOMITING Protocol Pantoprazole Sodium 40 mg 06/07/25 09:00 06/07/25 08:58 Pantoprazole Inj 40 Mg Vial IVP 07/07/25 08:59 40 mg QDAY ISABELLA Administration Sennosides 1 tab 06/07/25 09:00 06/07/25 08:58 Senna Tablet PO 07/07/25 08:59 1 tab QDAY [facility] Administration Protocol Plan Patient is a A 89-year-old old female with significant past medical history of hypertension, chronic back pain who presented on 06/06 for 4-day history of shortness of breath and fatigue, admitted for new onset Afib. #New onset atrial fibrillation Likely in setting of flulike symptoms (fatigue, shortness of breath, and dry heaving) and UTI. Denies previous history of atrial fibrillation or other cardiac diseases. Had recent exposure to sick contacts, family tested positive for COVID. Patient is COVID negative. Vitals at the time of admission are significant for blood pressure 156/90 mmHg, pulse rate 103 bpm. Irregular heart rate on exam. EKG on admission showed atrial fibrillation with rapid ventricular rate. S/p diltiazem 10mg x1 in ED. TSH WNL. A1c 6.4. LDL 82, total cholesterol 156, triglycerides and HDL also low. Scores: [id number] score 3, 5.1% risk of ischemic stroke, anticoagulation recommended HASBLED score 1, low risk of major bleeding Plan: - Cardiology, Dr. Herrera is consulted - Coreg 12.5 mg BID - Eliquis 2.5 mg BID; per cardiology recommendations however patient meets 1/3 requirements for reduced dose (age >80) # Acute hypoxic respiratory failure # Heart failure? Does not use oxygen at home. Required 4L O2 on admission, saturating 95%, improving. Reported shortness of breath for the past week prior to admission. Endorses orthopnea and presented with 1+ bilateral pitting edema. Does not have a contamination consultant, denies ever having cardiac work up. COVID negative. Plan: - Strict I&O's - Fluid restrict 1800 cc - IV Lasix 40 mg daily - echo pending - Coreg as above, consider starting on other GDMT therapy if found to have HF # Urinary tract infection Denied urinary symptoms such as dysuria, hematuria, or increased frequency on exam. UA showed turbid urine with 1+ proteinuria, 41 WBC on urine analysis with 3+ bacteriuria. Plan: - Pending urine cultures - 1 g of ceftriaxone (06/06- # Hypertension, controlled BP on admission 146/90. Takes amlodipine and benazepril combination at home daily. Plan: - Lasix and Coreg as above - Hold home medications for now - May consider starting on GDMT after echo Health Maintenance Disposition: Telemetry DVT prophylaxis: Eliquis GI prophylaxis: Protonix Diet: Cardiac CODE STATUS: DNR Patient plan of care was discussed with the resident, Dr. Koo, and attending physician, Dr. Deshpande. Tori Dunbar, PGY-1 Attending Provider Attestation/Addendum I have discussed and was present for the essential components of the history, physical examination, diagnosis, and treatment plan with the resident. I agree with the patient's care as documented by the resident and amended herein by me. Arnulfo Deshpande DO. Although this document has been carefully reviewed, there may still be some phonetic and other typographical errors. These errors are purely grammatical due to imperfections in the software program and should not be construed in any way to compromise the substance of the patient's medical care during this visit.
--- NOTE | 2025-06-07 17:08 | PC.PT ---
Patient is safe to ambulate to the bathroom with O2, a FWW, and 1 staff assist. RN made aware.
--- NOTE | 2025-06-07 17:45 | ESPR_ITS ---
<Statement entered by Nanci Herrera MD - 06/08/25 10:10> I personally examined evaluated the patient in telemetry patient is doing little better today responded well to diuretic therapy heart rate is controlled better cardiac echo showed preserved ejection fraction mild concentric LVH. Patient appears to be presenting with HFpEF small pleural effusion improved with diuretics will get ultrasound of the chest to assess if there is any substantial pleural effusion that may require thoracentesis but appears to be too small clinically. Patient has atrial fibrillation possibly chronic persistent for now rate control anticoagulation might consider cardioversion later on after discharge as an outpatient if necessary. Evaluate patient with resident physician Dr. Jose Lopez PGY2 agree with treatment plan recommendation will continue to monitor the patient closely Documentation for date of: 06/07/25 Subjective Subjective Interval history: Patient seen today at the bedside found awake, alert, orientedx3. No overnight events reported. Vitals and labs reviewed. Patient currently on Coreg 12.5 mg twice daily however blood pressure remains elevated as well as heart rate in the 110s 120s. Increase Coreg to 25 mg twice daily as well as added valsartan 160 mg daily. Additionally ultrasound lungs ordered to evaluate for pleural effusion possible thoracentesis. Eliquis was put on hold in view of possible however unlikely procedure. Patient responded well to IV diuresis decreased swelling noted on bilateral lower extremities, and patient endorses improvement in breathing Exam Vital Signs Temp Pulse Resp BP Pulse Ox O2 Del Method O2 Flow Rate 97.2 F 108 H 20 151/99 H 96 High Flow Nasal Cannula 2 06/07/25 16:00 06/07/25 16:00 06/07/25 16:00 06/07/25 16:00 06/07/25 16:00 06/07/25 16:06/07/25 16:00 Narrative Exam Physical Exam GENERAL: NAD, AAOx3 HEENT: Moist mucosa. Eyes open, symmetrical, & clear CARDIO: Heart irregularly irregular, no obvious murmurs PULM: No noted coughing/dyspnea CTA B/L, no R/W/R GI: Abdomen soft, nondistended, no pain on palpation. BSx4 SKIN/MSK/EXT:mild bilateral lower extremity swelling, no pain on palpation. Pedal pulses present B/L NEURO: AAOx3, no focal neuro deficits, able to move all 4 extremities Objective Labs 06/07/25 04:42 06/07/25 04:42 Labs: Laboratory Results - last 24 hr 06/07/25 04:42 WBC 9.9 RBC 4.31 Hgb 12.6 Hct 39.3 MCV 91 MCH 29.2 MCHC 32.1 RDW Std Deviation 41.8 Plt Count 188 Neut % (Auto) 82 H Lymph % (Auto) 9 [place] % (Auto) 7 Eos % (Auto) 1 Baso % (Auto) 0 Neut # (Auto) 8.2 H Lymph # (Auto) 0.9 [place] # (Auto) 0.7 Eos # (Auto) 0.1 Baso # (Auto) 0.0 Immature Gran # (Auto) 0.05 H Absolute Nucleated RBC 0.00 Immature Gran % 1 H Nucleated RBC % 0 Sodium 141 Potassium 3.6 Chloride 99 Carbon Dioxide 32.0 H Anion Gap 10 BUN 12 Creatinine 0.8 Estim Creat Clear Calc 54.6 L eGFR > 60 BUN/Creatinine Ratio 15 Glucose 154 H Calculated Osmolality 283 Calcium 9.3 Corrected Calcium 9.3 Magnesium 1.8 Total Bilirubin 0.7 AST 12 ALT < 7 L Alkaline Phosphatase 52 Total Protein 6.5 Albumin 4.1 Globulin 2.4 Albumin/Globulin Ratio 1.7 Triglycerides 86 Cholesterol 156 LDL Cholesterol, Calc 82 HDL Cholesterol 57 Cholesterol/HDL Ratio 2.7 L TSH 1.64 Quality Measures Quality Measures VTE prophylaxis Advance care planning discussed with:: patient Assessment & Plan Assessment Current Active Medications: Generic Name Dose Route Start Last Admin Trade Name Freq PRN Reason Stop Dose Admin Acetaminophen 650 mg 06/06/25 16:50 Acetaminophen 325 Mg Tablet PO 07/06/25 16:42 Q6H PRN Fever >101.5 Apixaban 2.5 mg 06/07/25 09:00 06/07/25 08:58 Apixaban 2.5 Mg Tablet PO 07/07/25 08:59 2.5 mg BID ISABELLA Administration Carvedilol 12.5 mg 06/07/25 08:00 06/07/25 08:57 Carvedilol 12.5 Mg Tablet PO 07/07/25 07:59 12.5 mg BIDWM ISABELLA Administration Furosemide 40 mg 06/07/25 09:00 06/07/25 08:59 Furosemide Inj 10 Mg/Ml Vial 2 Ml IVP 07/07/25 08:59 40 mg QDAY ISABELLA Administration Ceftriaxone Sodium/Dextrose 1 gm in 50 mls @ 100 mls/hr 06/07/25 09:00 06/07/25 09:01 Rocephin/D5w 1gm Iv Premix IV 06/14/25 08:59 100 mls/hr QDAY ISABELLA Administration Lidocaine 1 patch 06/07/25 07:19 Lidocaine 5% 1 Patch TOP X1 PRN pain 7-10 Melatonin 9 mg 06/07/25 21:00 Melatonin 3 Mg Tablet PO 07/07/25 20:59 HS ISABELLA Protocol Ondansetron HCl 4 mg 06/06/25 16:43 Ondansetron Inj 2 Mg/Ml Inj 2 Ml IVP 07/06/25 16:42 Q6H PRN NAUSEA OR VOMITING Protocol Pantoprazole Sodium 40 mg 06/07/25 09:00 06/07/25 08:58 Pantoprazole Inj 40 Mg Vial IVP 07/07/25 08:59 40 mg QDAY ISABELLA Administration Sennosides 1 tab 06/07/25 09:00 06/07/25 08:58 Senna Tablet PO 07/07/25 08:59 1 tab QDAY ISABELLA Administration Protocol Plan 89-year-old old female with significant past medical history of hypertension, chronic back pain was brought to the hospital with chief complaints of shortness of breath, fatigue since 4 days and New onset Afib. #New onset Atrial fibrillation with RVR #Heart failure with preserved ejection fraction [50-55%] #Hypertension Patient did endorse shortness of breath and palpitations, has +JVD and + hepatojugular reflux, orthopnea EKG showed Atrial fibrillation with RVR rate 110-130s CHADVASC: 5; 7.2% stroke risk per year, , Age more than 75, female gender, diabetes (A1c 6.4), history of hypertension HASBLED: 1; low risk of major bleeding Likely caused by acute infection and UTI Echo: Normal left ventricular size and function. Approximate ejection fraction is 50-55%. Normal right ventricular size and function. RVSP 42 mmHg with RAP 8. Moderate HTN Aortic valve sclerosis without stenosis, mild MAC with Mild MR mild tricuspid regurgitation ? Adjusted coreg to 25mg BID ? Held Eliquis 2.5 mg twice daily for stroke prevention ? Monitor telemetry ? Lasix 40 mg IV qday ? Keep K>4, Mg>2 ? Strict I&O's ? Fluid restriction #Acute hypoxic respiratory failure #Urinary tract infection - as per primary team Case discussed with my attending Dr. Javier Lopez MD PGY-2 Disclaimer: Despite multiple revisions, due to the dictation software being used, the document bellow may not be free of grammatical errors including phonetic/typographic errors. However, this does not deter from our commitment to providing health care in the patient's best interest in mind.
--- NOTE | 2025-06-07 17:57 | XR_ITS ---
Examination: Ultrasound right hemithorax Ultrasound left hemithorax Date and time: June 07, 2025, 1949 hrs. Indications: Difficulty breathing this week, chest x-ray yesterday heart failure with pleural fluid technique and findings: High resolution grayscale images right and left hemithoraces Small right small left pleural effusions Impression: Bilateral small pleural effusions
[2025-06-07] MEDS: MELATONIN 3 MG TABLET 9 MG PO (20:44)
[2025-06-08] VITALS (9 sets, daily range): BP systolic 111–134; BP diastolic 67–85; PULSE 81–115; RESP 16–21; TEMP 35.9–36.7; O2SAT 92–97; BMI 36.0
[2025-06-08 05:55] LABS: Basophils # (Auto) 0.1 Thou/mm3 (0.0-0.2); Basophils % (Auto) 1 % (0-2.5); Eosinophils # (Auto) 0.2 Thou/mm3 (0.0-0.5); Eosinophils % (Auto) 3 % (0-10); Hematocrit 40.8 % (36.0-46.0); Hemoglobin 13.0 g/dL (12.0-16.0); Immature Granulocytes Auto 0.03 Thou/mm3 (0.00-0.00); Lymphocytes # (Auto) 1.4 Thou/mm3 (1.0-4.8); Lymphocytes % (Auto) 18 % (10-50); Mean Corpuscular HGB Conc 31.9 g/dl (31.0-37.0); Mean Corpuscular Hemoglobin 29.5 pg (25.0-35.0); Mean Corpuscular Volume 93 fL (80-100); Monocytes # (Auto) 0.7 Thou/mm3 (0.0-0.8); Monocytes % (Auto) 9 % (0-12); Neutrophils # (Auto) 5.4 Thou/mm3 (1.8-7.7); Neutrophils % (Auto) 70 % (37-80); Nucleated Red Blood Cell # 0.00 Thou/mm3 (0.00-0.00); Nucleated Red Blood Cell % 0 /100 WBC (0); Platelet Count 180 Thou/mm3 (140-440); RDW Standard Deviation 43.1 fL (36.4-46.3); Red Blood Count 4.40 Miln/mm3 (4.00-5.20); White Blood Count 7.8 Thou/mm3 (3.6-11.0)
[2025-06-08 06:39] LABS: Alanine Aminotransferase 7 U/L (10-49); Albumin, Serum 4.0 gm/dL (3.4-4.8); Albumin/Globulin Ratio 1.7 (1.2-2.2); Alkaline Phosphatase 50 U/L (46-116); Anion Gap 10 (7-16); Aspartate Amino Transferase 12 U/L (0-34); BUN/Creatinine Ratio 15 Ratio (12-20); Bilirubin,Total 0.5 mg/dL (0.3-1.2); Blood Urea Nitrogen 17 mg/dL (9-23); Calcium 9.9 mg/dL (8.3-10.6); Calcium (Corrected) 9.9 mg/dL (8.5-10.1); Carbon Dioxide 33.6 mMol/L (20.0-31.0); Chloride 98 mMol/L (98-107); Creatinine (Component) 1.1 mg/dL (0.6-1.3); Estimated Creatinine Clearance 39.6 mL/min (>60); Globulin 2.4 gm/dL (2.3-3.5); Glucose 132 mg/dL (74-106); Osmolality,Calculated 286 (275-295); Potassium 3.9 mMol/L (3.4-5.1); Sodium 142 mMol/L (136-145); Total Protein 6.4 gm/dL (5.7-8.2); eGFR 48 See Note
[2025-06-08] MEDS: POLYETHYLENE GLYCOL 17 GM PACKET PO (07:59)
[2025-06-08] MEDS: cefTRIAXone/D5w 1gm IV premix 1 GM/50 ML BAG IV (08:01)
--- NOTE | 2025-06-08 09:15 | ESPR_ITS ---
<Statement entered by Nanci Herrera MD - 06/11/25 12:20> The patient is a personally examined evaluated by me with resident physician Dr. Jose Lopez PGY2 patient is doing better A-fib rate controlled heart failure well compensated appears to be doing better can be discharged home will see her as an outpatient discussed about discharge plan and evaluated the patient and discussed with the team agree with the treatment plan recommendation as documented by Dr. Lopez Documentation for date of: 06/08/25 Subjective Subjective Interval history: Patient seen today at the bedside found awake, alert, orientedx3. No overnight events reported. Vitals and labs reviewed. Blood pressure and heart rate controlled at this time on carvedilol 25 mg twice daily and valsartan 160 mg daily. Will continue to monitor at this time. Would likely convert to sinus as an outpatient. Exam Vital Signs Temp Pulse Resp BP Pulse Ox O2 Del Method O2 Flow Rate 97.1 F 96 21 H 111/69 97 Nasal Cannula 2 06/08/25 08:00 06/08/25 08:01 06/08/25 08:00 06/08/25 08:01 06/08/25 08:00 06/08/25 08:00 06/08/25 08:00 Narrative Exam Physical Exam GENERAL: NAD, AAOx3 HEENT: Moist mucosa. Eyes open, symmetrical, & clear CARDIO: Heart irregularly irregular, no obvious murmurs PULM: No noted coughing/dyspnea CTA B/L, no R/W/R GI: Abdomen soft, nondistended, no pain on palpation. BSx4 SKIN/MSK/EXT:mild bilateral lower extremity swelling, no pain on palpation. Pedal pulses present B/L NEURO: AAOx3, no focal neuro deficits, able to move all 4 extremities Objective Labs 06/08/25 05:05 06/08/25 05:05 Labs: Laboratory Results - last 24 hr 06/08/25 05:05 WBC 7.8 RBC 4.40 Hgb 13.0 Hct 40.8 MCV 93 MCH 29.5 MCHC 31.9 RDW Std Deviation 43.1 Plt Count 180 Neut % (Auto) 70 Lymph % (Auto) 18 [place] % (Auto) 9 Eos % (Auto) 3 Baso % (Auto) 1 Neut # (Auto) 5.4 Lymph # (Auto) 1.4 [place] # (Auto) 0.7 Eos # (Auto) 0.2 Baso # (Auto) 0.1 Immature Gran # (Auto) 0.03 H Absolute Nucleated RBC 0.00 Immature Gran % 0 Nucleated RBC % 0 Sodium 142 Potassium 3.9 Chloride 98 Carbon Dioxide 33.6 H Anion Gap 10 BUN 17 Creatinine 1.1 Estim Creat Clear Calc 39.6 L eGFR 48 L BUN/Creatinine Ratio 15 Glucose 132 H Calculated Osmolality 286 Calcium 9.9 Corrected Calcium 9.9 Total Bilirubin 0.5 AST 12 ALT 7 L Alkaline Phosphatase 50 Total Protein 6.4 Albumin 4.0 Globulin 2.4 Albumin/Globulin Ratio 1.7 Quality Measures Quality Measures VTE prophylaxis Advance care planning discussed with:: patient Assessment & Plan Assessment Current Active Medications: Generic Name Dose Route Start Last Admin Trade Name Freq PRN Reason Stop Dose Admin Acetaminophen 650 mg 06/06/25 16:50 Acetaminophen 325 Mg Tablet PO 07/06/25 16:42 Q6H PRN Fever >101.5 Apixaban 2.5 mg 06/07/25 09:00 06/07/25 08:58 Apixaban 2.5 Mg Tablet PO 07/07/25 08:59 2.5 mg On Hold: 06/07/25 19:01 BID ISABELLA Administration Carvedilol 25 mg 06/08/25 08:00 06/08/25 07:59 Carvedilol 12.5 Mg Tablet PO 07/08/25 07:59 25 mg BIDWM ISABELLA Administration Furosemide 40 mg 06/08/25 09:00 06/08/25 08:01 Furosemide 40 Mg Tablet PO 07/08/25 08:59 40 mg QDAY ISABELLA Administration Ceftriaxone Sodium/Dextrose 1 gm in 50 mls @ 100 mls/hr 06/07/25 09:00 06/08/25 08:01 Rocephin/D5w 1gm Iv Premix IV 06/14/25 08:59 100 mls/hr QDAY ISABELLA Administration Lidocaine 1 patch 06/07/25 07:19 Lidocaine 5% 1 Patch TOP X1 PRN pain 7-10 Melatonin 9 mg 06/07/25 21:00 06/07/25 20:44 Melatonin 3 Mg Tablet PO 07/07/25 20:59 9 mg HS ISABELLA Administration Protocol Ondansetron HCl 4 mg 06/06/25 16:43 Ondansetron Inj 2 Mg/Ml Inj 2 Ml IVP 07/06/25 16:42 Q6H PRN NAUSEA OR VOMITING Protocol Pantoprazole Sodium 40 mg 06/07/25 09:00 06/08/25 08:02 Pantoprazole Inj 40 Mg Vial IVP 07/07/25 08:59 40 mg QDAY ISABELLA Administration Sennosides 1 tab 06/07/25 09:00 06/08/25 08:00 Senna Tablet PO 07/07/25 08:59 1 tab QDAY ISABELLA Administration Protocol Valsartan 160 mg 06/08/25 09:00 Valsartan 80 Mg Tablet PO 07/08/25 08:59 QDAY ISABELLA Plan 89-year-old old female with significant past medical history of hypertension, chronic back pain was brought to the hospital with chief complaints of shortness of breath, fatigue since 4 days and New onset Afib. #New onset Atrial fibrillation with RVR #Heart failure with preserved ejection fraction [50-55%] #Hypertension Patient did endorse shortness of breath and palpitations, has +JVD and + hepatojugular reflux, orthopnea EKG showed Atrial fibrillation with RVR rate 110-130s CHADVASC: 5; 7.2% stroke risk per year, , Age more than 75, female gender, diabetes (A1c 6.4), history of hypertension HASBLED: 1; low risk of major bleeding Likely caused by acute infection and UTI Echo: Normal left ventricular size and function. Approximate ejection fraction is 50-55%. Normal right ventricular size and function. RVSP 42 mmHg with RAP 8. Moderate HTN Aortic valve sclerosis without stenosis, mild MAC with Mild MR mild tricuspid regurgitation ? Adjusted coreg to 25mg BID ? on valsartan 160mg q day ? Can continue Eliquis 2.5 mg twice daily for stroke prevention ? Monitor telemetry ? Lasix 40 mg IV qday ? Keep K>4, Mg>2 ? Strict I&O's ? Fluid restriction #Acute hypoxic respiratory failure #Urinary tract infection - as per primary team Case discussed with my attending Dr. Javier Lopez MD PGY-2 Disclaimer: Despite multiple revisions, due to the dictation software being used, the document bellow may not be free of grammatical errors including phonetic/typographic errors. However, this does not deter from our commitment to providing health care in the patient's best interest in mind.
--- NOTE | 2025-06-08 09:16 | PC.SS ---
DIE BARBER confirmed with patient that discharge plan will be home with home health. No preferred agency identified. Patient will require home oxygen. Patient requesting 3-1 commode. Patient's daughter, Valeria Regalado; will provide transport on behalf of the patient.
--- NOTE | 2025-06-08 09:18 | PC.SS ---
SEMICONDUCTOR PROCESSOR informed nurse of need to conduct room air evaluation to confirm patient's need for home oxygen.
--- NOTE | 2025-06-08 09:22 | PC.SS ---
Bedside Commode Patient is physically incapable of utilizing regular toilet facilities because his or her diagnosis confines the patient to a single room. Patient is confined to a single level, and there is no toilet on that level; patient cannot access the toilet facilities in a timely manner due to lack of ambulation. Oxygen Pt is discharged in a chronic stable state and has been treated optimally and has other respiratory needs. Oxygen has been ordered due to Acute hypoxic respiratory failure.
--- NOTE | 2025-06-08 09:55 | PC.NURSE ---
At rest 02 sats were 94% on 2L NC. Room air SpO2 at rest was 87%. Room air SpO2% with exercise was 83%. Recovery test: SpO2% on 3L NC O2 with exercise was 92%.
[2025-06-08] MEDS: VALSARTAN 80 MG TABLET 160 MG PO (10:00)
--- NOTE | 2025-06-08 10:35 | ESDS_ITS ---
Planned Discharge Date 06/08/25 DS: Providers Provider Date of admission: 06/06/25 16:53 Primary care physician: Jeremy Lopez MD Admitting Provider: Anthony Deshpande DO Attending Provider on Admission: Anthony Deshpande DO Consults: 06/06/25 16:51 Consult to Cardiology Stat Comment: New onset afib Consulting Provider: Nanci Herrera 06/06/25 20:42 Referral Physical Therapy Routine Comment: Physician Instructions: Referral Respiratory Therapy Routine Comment: Attending Provider on DC: Anthony Deshpande DO Discharging Provider: Tori Dunbar DO DS: Diagnosis Problem List Completed Was Problem List Reviewed/Reconciled?: Yes Hospital Course Hospital Course Hospital course: Summary: Patient is a a 89-year-old old female with significant past medical history of hypertension, chronic back pain who presented on 06/06 for 4-day history of shortness of breath and fatigue, admitted for new onset atrial fibrillation in setting of UTI. Patient was treated with IV ceftriaxone empirically starting 06/06. Urine culture showed Klebsiella pneumoniae, pansensitive except for ampicillin. Patient continued to be in A-fib on telemetry. Based on presenting symptoms including orthopnea, edema, and shortness of breath, patient was worked up for heart failure and diuresed with IV Lasix. Echo showed HFpEF with EF 50- 55% and diastolic dysfunction. Consulted dinkey press operator Dr. Herrera who recommended discharging on Eliquis 2.5 mg BID, Coreg 25mg BID, Lasix 40 mg PO every other day or as needed. Of note, patient required oxygen on admission but has been able to wean down to 1-2 L with adequate saturation. Patient continues to have low saturation overnight, recommended patient be worked up for possible sleep apnea as she also endorses snoring and fatigue upon waking. Otherwise, will instruct patient to continue home amlodipine-benazapril combination for hypertension as well as 3 more days of antibiotics for her UTI. Patient was medically stable upon discharge to home with home health. ED Course: - Vitals at the time of admission are significant for blood pressure 156/90 mmHg, pulse rate 103 bpm, SpO2 90% with room air - Labs done at the time of admission are significant for BNP 770. - Urinalysis is significant for turbid urine, 1+ proteinuria, 1+ blood, 41 WBC, 3+ bacteria - Chest x-ray done at the time of admission showed mild enlargement in cardiac control - EKG done at the time of admission showed atrial fibrillation with rapid ventricular rate with T wave inversions in 1, aVL and poor R wave progression. Discharge Recommendations: Please take Coreg 25 mg tablet by mouth twice a day for atrial fibrillation Please take Eliquis 2.5 mg by mouth twice a day to lower your risk of stroke from AFIB Please take Lasix 40 mg by mouth daily as needed if you develop edema secondary to pulmonary arterial hypertension Please complete antibiotic course with Cefuroxime 250 mg by mouth twice a day for 3 more days Stop taking Atenolol, Ibuprofen Continue all other home medications as prescribed Please follow-up with PCP within 1 week or follow-up at the [facility] [address] [place] [address] Follow-up with Photoengraving Photographer (Dr. Herrera) within 1-2 weeks after discharge If your symptoms worsen or if you develop new chest pain, shortness of breath, dizziness or loss of consciousness - please come back to the ED immediately Hospital Diagnoses: # New onset atrial fibrillation # Acute hypoxic respiratory failure # HFpEF (EF 50-55%) # Urinary tract infection # Hypertension, controlled Disposition: Safe discharge to home with home health. Patient plan of care was discussed with the attending physician, Dr. Deshpande. Tori Dunbar, PGY-1 Time Spent with Patient Time attestation: Total time spent providing and/or coordinating discharge services: Time spent: Greater than 30 minutes Home Health Home Health Referral Orders: 06/08/25 09:54 Home Health Referral Routine Reason For Exam: debility Home-Bound The patient must either because of illness or injury, need the aid of supportive devices such as crutches, canes, wheelchairs, and walkers; the use of special transportation; or the assistance of another person in order to leave their place of residence; OR have a condition such that leaving his or her home is medically contraindicated. In addition, the patient also meets the following criteria: patient is normally unable to leave the home and leaving home requires considerable taxing effort. Addendum to Home Health Certification Practitioner's Certification: I certify that the patient has been under my care in the hospital and the care of attending physician (see below). We had a riis-qx-poyz encounter on (see date below). My clinical findings indicate that the patient is home bound per the above criteria and the Home Health Services noted in these orders are medically necessary. The primary reason for the vako-rx-rilw encounter is related to the fact that the patient requires home health services. Date Certifying Irac-rv-Vsuj Physician Encounter: 06/06/25 Physician's Name who will Assume Oversight for HH Services: Jeremy Loepz Physician's Phone No.who will Assume Oversight for Service: INSURANCE AGENCY MANAGER - Community Resources: No PT to Evaluate: Yes PT to evaluate and provide a treatmnet plan to increase patient's mobility and strength. Wound Care: No IV Therapy: No Discontinue PICC Line Once Treatment Complete: No RN Safety Evaluation: Yes RN to evaluate and create a plan of care that will produce positive outcomes. Palliative Treatment: No Palliative treatment and evaluate the need for hospice. Home Health Aide - Personal Care: No Home Health Aide to assist with any ADL's. Exam Vital Signs Temp Pulse Resp BP Pulse Ox O2 Del Method O2 Flow Rate 98.1 F 85 19 121/67 94 L Nasal Cannula 3 06/08/25 09:40 06/08/25 10:00 06/08/25 09:40 06/08/25 10:00 06/08/25 09:40 06/08/25 09:40 06/08/25 09:40 Narrative Exam Physical Exam General: Awake and in no acute distress. Conversational. Obese. Pleasant elderly woman. HEENT: Normocephalic, atraumatic, mucous membranes moist. Heart: Irregular rate and rhythm, normal S1 and S2, no murmurs appreciated. Lungs: Clear to auscultation with no wheezing or crackles. Abdomen: Soft, nondistended, nontender, positive bowel sounds. No guarding or rebound tenderness. Neurologic: Alert and oriented x3, no gross neurological deficit, and patient able to move all 4 extremities. Extremities: 1+ pitting edema bilaterally below knees. Skin: No rash or ecchymoses. Discharge Plan Plan Patient Disposition: Home w/HOME HEALTH Patient condition on transfer: Stable Care Plan Goals: Please take Coreg 25 mg tablet by mouth twice a day for atrial fibrillation Please take Eliquis 2.5 mg by mouth twice a day to lower your risk of stroke from AFIB Please take Lasix 40 mg by mouth daily as needed if you develop edema secondary to pulmonary arterial hypertension Please complete antibiotic course with Cefuroxime 250 mg by mouth twice a day for 3 more days Stop taking Atenolol, Ibuprofen Continue all other home medications as prescribed Please follow-up with PCP within 1 week or follow-up at the [facility] [address] [place] [address] Follow-up with Photoengraving Photographer (Dr. Herrera) within 1-2 weeks after discharge If your symptoms worsen or if you develop new chest pain, shortness of breath, dizziness or loss of consciousness - please come back to the ED immediately Prescriptions/Referrals Prescriptions/Med Rec: New furosemide 40 mg Tablet 40 mg PO QDAY PRN (Reason: edema) 30 Days Qty: 30 0RF cefuroxime axetil 250 mg tablet 250 mg PO BID 3 Days Qty: 6 0RF carvedilol [Coreg] 25 mg tablet 25 mg PO BID 30 Days Qty: 60 0RF Rx Instructions: must administer with a meal/food Eliquis 2.5 mg Tablet 2.5 mg PO BID 30 Days Qty: 60 0RF Continued hydrocodone-acetaminophen 7.5-325 mg tablet 1 tab PO Q12H PRN (Reason: pain) amlodipine-benazepril 5-20 mg capsule 1 cap PO DAILY 30 Days Qty: 30 0RF Discontinued ibuprofen 800 mg tablet 800 mg PO DAILY PRN (Reason: pain) atenolol 50 mg tablet 50 mg PO Q24H Patient Comments: TAKE 1 TABLET BY MOUTH EVERY DAY hydrocodone-acetaminophen 5-325 mg tablet 1 tab PO BID MDD 10 PRN (Reason: pain) Qty: 10 0RF Referrals: Jeremy Lopez MD [Primary Care Provider, Family Practice] Nanci Herrera MD [Physician, Cardiology] Patient/Caregiver Discharge Instructions Education Materials: Heart Failure Dc, Heart Disease Women, Stroke Prevent Live W Atrial Fib, Understanding Atrial Fibrillation Print Language: Russian Stand Alone Forms: Caryl Award Info., Patient Portal Info Letter Discharge Order Discharge Orders: Discharge (Routine); Ordered 06/08/25 Ordered By: Molina Radford Quality Discharge Quality Measures VTE prophylaxis Attestestation MD Attestation I have discussed and was present for the essential components of the discharge history, physical examination, diagnosis, and discharge treatment plan with the resident. I agree with the patient's discharge care as documented by the resident and amended herein by me. Arnulfo Deshpande DO. The patient understood all discharge instructions, all questions were answered satisfactorily. The patient was instructed to return to the Emergency Department is symptoms worsened or persisted. Patient was stable, afebrile, tolerating p.o. intake and ambulatory at time of discharge home. Patient started on Coreg 25 mg daily for new onset atrial fibrillation as well as Eliquis 2.5 mg p.o. twice daily at the request of cardiology. Patient will also be sent with a short course of cefuroxime for UTI to complete a total 3-day course. Patient will need to follow-up with cardiology and her primary care physician within 7 to 10 days of discharge. See resident note above for additional details in regards to hospital admission. Although this document has been carefully reviewed, there may still be some phonetic and other typographical errors. These errors are purely grammatical due to imperfections in the software program and should not be construed in any way to compromise the substance of the patient's medical care during this visit.
--- NOTE | 2025-06-08 11:42 | PC.SS ---
DME referral submitted on [facility]. Responses are pending. Documentation placed in patient's chart.
--- NOTE | 2025-06-08 15:05 | PC.CM ---
Addendum entered by Jus Castro RN 06/08/25 15:51: Patient referred to [facility], SOC 24-48 hrs. Original Note: Home health referral sent out via [employer], pending responses at this time.
== END 2025-06-08 15:35 | disposition home health service (06) | DRG 308 ==
LOC: SERX 14:30 → SERHOLD 16:54 → S2NX 19:59
PROVIDERS: Nurse Practitioner Primary Care; Admitting Provider Student in an Organized Health Care Education/Training Program; Emergency Provider Emergency Medicine; PCP Family Medicine; Visit Provider Student in an Organized Health Care Education/Training Program
DX: I48.91 Unspecified atrial fibrillation (principal); J96.01 Acute respiratory failure with hypoxia; N39.0 Urinary tract infection, site not specified; I50.30 Unspecified diastolic (congestive) heart failure; M54.9 Dorsalgia, unspecified; G89.29 Other chronic pain; I11.0 Hypertensive heart disease with heart failure; I27.21 Secondary pulmonary arterial hypertension; Z97.0 Presence of artificial eye; Z90.01 Acquired absence of eye; I35.8 Other nonrheumatic aortic valve disorders; Z66 Do not resuscitate; E11.9 Type 2 diabetes mellitus without complications; Z96.641 Presence of right artificial hip joint; Z79.01 Long term (current) use of anticoagulants; B96.1 Klebsiella pneumoniae [K. pneumoniae] as the cause of diseases classified elsewhere; Z79.899 Other long term (current) drug therapy; Z87.891 Personal history of nicotine dependence
CPT/HCPCS: 36415; 71045; 76999; 80053; 80061; 81001; 83036; 83735; 83880; 84443; 84484; 85025; 85610; 85730; 87077; 87086; 87186; 87400; 87811; 93005; 93306; 96365; 96366; 96375; 97162; 99285; A4649; J0696; J1938; J2470; J3475; J3490; A9270

== ENCOUNTER 2025-07-12 04:15 | Inpatient (IN) | payer MEDICARE, MEDICAID, SELFPAY ==
[2025-07-12] VITALS (33 sets, daily range): BP systolic 87–195; BP diastolic 58–114; PULSE 76–113; RESP 14–96; TEMP 36.5–37; O2SAT 80–100; BMI 34.9
--- NOTE | 2025-07-12 04:22 | XR_ITS ---
EXAMINATION: AP chest single view TECHNIQUE: AP portable upright chest single view Date and time: July 12, 2025, 0446 hours, comparison 06/06/2025 INDICATIONS: Onset chest pain today FINDINGS: Moderate heart failure Moderate enlargement left ventricle. Prominent vascular congestion including central vascular engorgement. Bilateral perihilar basilar edema. Consider superimposed pneumonia at the lung bases Prominent osteopenia IMPRESSION: Moderate heart failure Consider superimposed pneumonia at the lung bases
--- NOTE | 2025-07-12 04:22 | EDNOTE_ITS ---
ED SOB =RME/HPI General Chief Complaint: Shortness of Breath/Dyspnea Stated Complaint: SOB, N/V Time Seen by Provider: 07/12/25 04:22 Arrival date/time: 07/12/25 04:15 RME / HPI RME / HPI Narrative: Dr. 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 Patient's symptoms are intermittent. Per EMS, patient was saturating at 93% on 2L/NC and went up to 96% on 4L. Patient's heart rate with EMS has been between 80-120. Patient denies chest pain, cough, fever, chills, or any otehr associated symptoms. NKA. Related Data Home Medications ?Medication ?Instructions ?Recorded ?Confirmed hydrocodone 7.5 mg-acetaminophen 1 tab PO Q12H PRN chris n 06/07/25 06/07/25 325 mg tablet Previous Rx's ?Medication ?Instructions ?Recorded amlodipine 5 mg-benazepril 20 mg 1 cap PO DAILY 1 anthony h #30 caps 06/08/25 capsule Allergies Allergy/AdvReac Type Severity Reaction Status Date / Time No Known Allergies Allergy Verified 06/06/25 12:26 Review of Systems Review of Systems Systems Reviewed: All systems reviewed, normal except as documented Past Medical History Past Medical History CARDIAC: Positive Cardiac Disorders and Hypertension; Negative Congestive Heart Failure RESPIRATORY: Negative Chronic Obstructive Pulmonary Disease (COPD) GENITOURINARY: Negative Renal Disease MUSCULOSKELETAL: Positive Musculoskeletal Disorders ENDOCRINE: Negative Diabetes Mellitus Type 1 Surgical History SURGICAL: Positive Eye Surgery (right eye removed) Social History SMOKING STATUS: Never smoker ED Exam Narrative Physical exam: Generally patient is alert elderly appearing female and mildly dyspneic, neck showed no JVD, heart shows an irregularly irregular rhythm with controlled rate, lungs show distant breath sounds bilaterally, abdomen is obese soft nontender extremities show mild pitting pedal edema that is symmetrical bilaterally to the lower extremities, neurologic exam shows the patient to be alert obeys commands without focal motor deficit Course Course Course Narrative: CXR is ordered for determining the etiology of shortness of breath. Quality Measures none Orders Category Date Time Status EKG (ED ONLY) *Do not use* NOW Care 07/12/25 04:22 Completed EKG (ED Only) Stat Exams 07/12/25 04:22 Draft XR chest 1V portable Stat Exams 07/12/25 04:22 Taken BNP [B-Type Natriuretic Peptide] Stat Lab 07/12/25 04:30 Completed CBC Stat Lab 07/12/25 04:30 Completed CMP [Comprehensive Metabolic Panel] Stat Lab 07/12/25 04:30 Completed Lipase Stat Lab 07/12/25 04:30 Completed Troponin I Stat Lab 07/12/25 04:30 Completed Furosemide Inj [Lasix Inj] Med 07/12/25 05:03 Discontinued 80 mg IVP X1 ONE Vital Signs Vital signs: Vital Signs Temperature 98.6 F 07/12/25 04:22 Pulse Rate 106 H 07/12/25 04:22 Respiratory Rate 14 07/12/25 04:22 Blood Pressure 195/114 H 07/12/25 04:22 Pulse Oximetry (%) 80 L 07/12/25 04:22 Oxygen Delivery Method Room Air 07/12/25 04:22 Shortness of Breath / Dyspnea MDM Narrative MDM Narrative:: Scribe Attestation: 07/12/25 - Mariya Loredo am scribing for and in the presence of Dr. Celis. I reviewed the patient's chart. I interpreted all labs. BNP is elevated. Troponin is not elevated. EKG shows atrial fibrillation with ventricular response of [address] segment change. Patient was hospitalized approximately 5 weeks ago and diagnosed with diastolic heart failure with ejection fraction between 50 and 55%. She at that time was started on Eliquis Coreg and Lasix. Chest x-ray tonight shows bilateral pleural effusions with pulmonary edema. Patient was given Lasix 80 mg IV and will need to be diuresed. I discussed this case with the hospitalist and the patient will require admission to the hospital for further treatment and evaluation. Patient data External records reviewed:: [facility] previous records (Per chart review, patient was admitted here on 06/06/25 for aFib.) and EMS form Clinical information provided by:: patient and EMS Social determinants that could affect healthcare access:: none Patient has the following chronic illnesses:: aFib, HTN, diastolic heart failure How is presenting disease/condition affected by chronic disease/condition?: exacerbated by Evaluation data The following diagnostics were reviewed and interpreted by me:: lab results, radiology exam(s) and EKG tracing(s) Lab and/or radiology exams considered but not ordered:: none Interpretation Summary: See MDM Medications / Prescriptions Medications or Prescriptions considered but not ordered:: none Medication administrations:: Medication Administration History Discontinued Medications Furosemide (Furosemide Inj 10 Mg/Ml 4ml Vial) 80 mg IVP X1 ONE Stop: 07/12/25 05:04 see above Consultations Consultation(s) initiated? (list below): Yes Diagnosis Shortness of Breath Differential Diagnosis: other (See MDM) Most likely diagnosis given after review of the tests above:: see clinical impression below Admission Indicated Admission indicated?: indicated Admission Request Was there a request for admission?: Yes Admission Attestation Admission request attestation: Discussed case with [] from Hospitalist service regarding admission. Discussed patients ED course, exam findings, labs, and radiology results. The Hospitalist [agrees,declines] to accept the patient for admission. Disposition Plan Disposition Plan: Admit Critical Care Time Critical Care Time Critical Care Time: Yes Total Critical Care Time (min.): 35 Attestation: Excluding other billable procedures Discharge Plan Plan Patient Disposition: Admit Acute Care w/in Hospital Prescriptions/Referrals Prescriptions/Med Rec: No Action hydrocodone-acetaminophen 7.5-325 mg tablet 1 tab PO Q12H PRN (Reason: pain) amlodipine-benazepril 5-20 mg capsule 1 cap PO DAILY 30 Days Qty: 30 0RF Problem List Clinical Impression: CHF exacerbation, Atrial fibrillation Patient/Caregiver Discharge Instructions Print Language: Scottish Stand Alone Forms: Caryl Award Info., Patient Portal Info Letter
--- NOTE | 2025-07-12 04:22 | EKG_ITS ---
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1935 Requested By: Reji Gatica Order Number: [id number] Reading MD: Reji Gatica Measurements Intervals [place] Rate: 96 P: TX: QRS: -40 QRSD: 97 T: 88 QT: 354 QTc: 447 Interpretive Statements ATRIAL FIBRILLATION LEFT AXIS DEVIATION [QRS AXIS < -30] POSSIBLE ANTERIOR MYOCARDIAL INFARCTION , PROBABLY OLD [30 ms Q WAVE IN V3/V4, OR R < 0.2 mV IN V4] Compared to ECG 06/06/2025 12:40:19 Left-axis deviation now present Myocardial infarct finding now present Left anterior fascicular block no longer present T-wave abnormality no longer present Possible ischemia no longer present /store/S0/[id number]/[id number].pdf
[2025-07-12 04:37] LABS: Basophils # (Auto) 0.1 Thou/mm3 (0.0-0.2); Basophils % (Auto) 1 % (0-2.5); Eosinophils # (Auto) 0.1 Thou/mm3 (0.0-0.5); Eosinophils % (Auto) 1 % (0-10); Hematocrit 40.8 % (36.0-46.0); Hemoglobin 12.8 g/dL (12.0-16.0); Immature Granulocytes Auto 0.03 Thou/mm3 (0.00-0.00); Lymphocytes # (Auto) 0.7 Thou/mm3 (1.0-4.8); Lymphocytes % (Auto) 7 % (10-50); Mean Corpuscular HGB Conc 31.4 g/dl (31.0-37.0); Mean Corpuscular Hemoglobin 29.7 pg (25.0-35.0); Mean Corpuscular Volume 95 fL (80-100); Monocytes # (Auto) 0.5 Thou/mm3 (0.0-0.8); Monocytes % (Auto) 5 % (0-12); Neutrophils # (Auto) 8.5 Thou/mm3 (1.8-7.7); Neutrophils % (Auto) 86 % (37-80); Nucleated Red Blood Cell # 0.00 Thou/mm3 (0.00-0.00); Nucleated Red Blood Cell % 0 /100 WBC (0); Platelet Count 147 Thou/mm3 (140-440); RDW Standard Deviation 46.3 fL (36.4-46.3); Red Blood Count 4.31 Miln/mm3 (4.00-5.20); White Blood Count 9.9 Thou/mm3 (3.6-11.0)
[2025-07-12 05:06] LABS: B-Type Natriuretic Peptide 495 pg/mL (0-100)
[2025-07-12 05:07] LABS: Alanine Aminotransferase < 7 U/L (10-49); Albumin, Serum 4.5 gm/dL (3.4-4.8); Albumin/Globulin Ratio 2.0 (1.2-2.2); Alkaline Phosphatase 55 U/L (46-116); Anion Gap 9 (7-16); Aspartate Amino Transferase 14 U/L (0-34); BUN/Creatinine Ratio 13 Ratio (12-20); Bilirubin,Total 0.6 mg/dL (0.3-1.2); Blood Urea Nitrogen 13 mg/dL (9-23); Calcium 9.5 mg/dL (8.3-10.6); Calcium (Corrected) 9.5 mg/dL (8.5-10.1); Carbon Dioxide 36.2 mMol/L (20.0-31.0); Chloride 99 mMol/L (98-107); Creatinine (Component) 1.0 mg/dL (0.6-1.3); Estimated Creatinine Clearance 44.4 mL/min (>60); Globulin 2.2 gm/dL (2.3-3.5); Glucose 161 mg/dL (74-106); Lipase 19 U/L (12-53); Osmolality,Calculated 289 (275-295); Potassium 3.5 mMol/L (3.4-5.1); Sodium 144 mMol/L (136-145); Total Protein 6.7 gm/dL (5.7-8.2); Troponin I < 0.020 ng/mL (0.0-0.045); eGFR 54 See Note
[2025-07-12] MEDS: FUROSEMIDE INJ 10 MG/ML 4ML VIAL 80 MG IVP (05:30)
--- NOTE | 2025-07-12 05:52 | PD.RESHP ---
Documentation for date of: 07/12/25 HPI History of Present Illness Chief complaint: Shortness of Breath History of present illness: This is a 89-year-old old female with past medical history of hypertension, chronic back pain was brought to the hospital with chief complaints of Worsening progressive shortness of breath since 2 days. At baseline, patient is able to walk with the help of walker and is able to do her routine daily activities , on 2L of oxygen at Home and uses bed recliner to sleep at night. But since 2 days the patient is feeling progressive worsening of shortness of breath associated with orthopnea apnea and nausea with dry heaving. She endorses occasional palpitations but denies any chest pain, chest tightness, fever, increased sputum production, abdominal pain, urinary frequency, urinary urgency, diarrhea or any recent sick contacts. She denies any increased water intake or decreased urine output. She denies any swelling in the legs, abdominal distention. ED course: - Vitals at the time of admission are significant for blood pressure 195/114, AL 106, respiratory 14, temperature 98.6 F, saturating 80% on room air which is progressively improved to 97 on 5 L of nasal cannula - Labs done at the time of admission are significant for BNP 495, HCO3 36.2. - Chest x-ray done at the time of admission showed mild enlargement in cardiac contour, bilateral pulmonary edema, bilateral pleural effusion - EKG done at the time of admission showed atrial fibrillation with rate control 96. Past medical history: Hypertension, chronic back pain, prior hospitalization for the similar symptoms in the last month. Past surgical history: Right hip replacement Social history: Lives with the family, retired. Denies smoking, alcohol, other illicit drug abuse. Allergies: NKDA Review of Systems Review of Systems Systems Reviewed: All systems reviewed, normal except as documented Exam Vital Signs Temp Pulse Resp BP Pulse Ox O2 Del Method O2 Flow Rate 98.1 F 90 20 131/88 H 97 Nasal Cannula 4 07/12/25 05:38 07/12/25 05:38 07/12/25 05:38 07/12/25 05:38 07/12/25 05:38 07/12/25 05:38 07/12/25 04:25 FiO2 5 07/12/25 05:38 Narrative Exam GENERAL: NAD, AAOx3 HEENT: Moist mucosa. Eyes open, symmetrical, & clear CARDIO: Rapid Irregular rhythm Noted. No Murmurs. PULM: Bilateral crackles are heard at the lung bases. GI: Abdomen soft, nondistended, Non Tender SKIN/MSK/EXT: No wounds/rashes/amputations, no pain on palpation.Edema on B/L ankles 1+. Pedal pulses present B/L NEURO: AAOx3, no focal neuro deficits, able to move all 4 extremities Results: Labs 07/13/25 05:13 07/13/25 05:13 Labs: Short CBC 07/12/25 Range/Units 04:30 WBC 9.9 (3.6-11.0) Thou/mm3 Hgb 12.8 (12.0-16.0) g/dL Hct 40.8 (36.0-46.0) % Plt Count 147 D (140-440) Thou/mm3 BMP 07/12/25 04:30 Sodium 144 Potassium 3.5 Chloride 99 Carbon Dioxide 36.2 H BUN 13 Creatinine 1.0 Glucose 161 H Calcium 9.5 Cardiac Enzymes 07/12/25 Range/Units 04:30 Troponin I < 0.020 (0.0-0.045) ng/mL Liver Function 07/12/25 Range/Units 04:30 Total Bilirubin 0.6 (0.3-1.2) mg/dL AST 14 (0-34) U/L ALT < 7 L (10-49) U/L Alkaline Phosphatase 55 (46-116) U/L Albumin 4.5 (3.4-4.8) gm/dL Quality Measures Quality Measures VTE prophylaxis Advance care planning discussed with:: patient Medications Home Medications and Allergies Home Medications ?Medication ?Instructions ?Recorded ?Confirmed ?Type hydrocodone 7.5 mg-acetaminophen 1 tab PO Q12H PRN pain 06/07/25 07/13/25 History 325 mg tablet apixaban 2.5 mg tablet (Eliquis) 2.5 mg PO BID 07/12/25 07/12/25 History carvedilol 25 mg tablet 25 mg PO DAILY 07/13/25 07/13/25 History furosemide 40 mg tablet 40 mg PO DAILY 07/13/25 07/13/25 History Allergies Allergy/AdvReac Type Severity Reaction Status Date / Time No Known Allergies Allergy Verified 06/06/25 12:26 Visit Medications Acetaminophen (Acetaminophen 325 Mg Tablet) 650 mg PO Q6H PRN PRN Reason: Fever >100.4 Stop: 08/11/25 05:43 Acetaminophen (Acetaminophen 325 Mg Tablet) 650 mg PO Q6H PRN PRN Reason: PAIN SCALE 1-3 (mild Stop: 08/11/25 05:43 Apixaban (Apixaban 2.5 Mg Tablet) 2.5 mg PO BID ISABELLA Stop: 08/11/25 08:59 Carvedilol (Carvedilol 12.5 Mg Tablet) 25 mg PO QDAY ISABELLA Stop: 08/11/25 08:59 Docusate Sodium (Docusate Sod 100 Mg Capsule) 100 mg PO QDAY ISABELLA; Protocol Stop: 08/11/25 08:59 Furosemide (Furosemide Inj 10 Mg/Ml 4ml Vial) 40 mg IVP BIDD ISABELLA Stop: 08/11/25 05:59 Ondansetron HCl (Ondansetron Inj 2 Mg/Ml Inj 2 Ml) 4 mg IVP Q6H PRN; Protocol PRN Reason: NAUSEA OR VOMITING Stop: 08/11/25 05:43 Sennosides (Senna Tablet) 1 tab PO QDAY ISABELLA; Protocol Stop: 08/11/25 08:59 Discontinued Medications Furosemide (Furosemide Inj 10 Mg/Ml 4ml Vial) 80 mg IVP X1 ONE Stop: 07/12/25 05:04 Last Admin: 07/12/25 05:30 Dose: 80 mg Assessment & Plan Plan This is a 89-year-old old female with past medical history of hypertension, chronic back pain was brought to the hospital with chief complaints of Worsening progressive shortness of breath since 2 days. She was admitted for CHF exacerbation. # Acute hypoxic respiratory failure # CHF exacerbation # HFpEF(EF 50 to 55%-06/06) Progressive worsening of shortness of breath, orthopnea Bilateral crackles on lung bases, ankle edema BNP 495, chest x-ray showing bilateral pleural effusion and pulmonary edema at lung bases. Compliant with her home medication. Given furosemide IV 80 mg in ED for her pulmonary edema. ?Starting on IV furosemide 40 mg daily ?Strict input and output and weight monitoring ?Fluid restriction on 1500 mL ?Starting on cardiac diet # A-fib on rate control # Persistent A-fib A-fib was diagnosed on last hospitalization on 06/06 Denies any chest pain, chest tightness but endorses occasional palpitations Taking Eliquis 2.5 mg twice daily at home ?Continue her home medication ?Follow-up with PT/INR values. # Hypertension Initial blood pressure was 195/114 current blood pressure at 5:40 AM is 131/88 ?continuing her home medication carvedilol 25 mg daily ?Continue to monitor. Code status: Full DVT prophylaxis: On Eliquis Diet: Cardiac diet Lines: PIV Supplemental O2: 5 L of oxygen through [place] Disposition: Tele Discussed this case with my senior Dr. Ramos and my attending Dr. Mariana Rao MD PGY1 Attending Provider Attestation/Addendum After examination of the patient and review of the clinical data I feel that this patient needs admission to the hospital for further treatment/evaluation. Plan of care discussed with patient and is in agreement. I Angelo Peña MD, attest that I was physically present for gonzalez portions of evaluation, and examined patient, labs and imagings and plan of care were discussed with IM residents team, and I agree with the findings and plans documented above.
[2025-07-12 06:54] LABS: Collection Type, Urine Clean Catch
[2025-07-12 07:33] LABS: Bacteria,Urine Rare; Bilirubin,Urine Negative (Negative); Blood,Urine Negative (Negative); Clarity,Urine Clear (Clear/Hazy); Color,Urine Lt-Yellow (Lt Yel-Yel); Glucose, Urine Negative (Negative); Ketones,Urine Negative (Negative); Leukocyte Esterase,Urine Negative (Negative); Nitrite,Urine Negative (Negative); PH,Urine 7.0 (5.0-7.0); Protein,Urine Negative (Neg - Trace); RBC,Urine 1 /hpf (0-3); Specific Gravity,Urine 1.010 (1.001-1.035); Squamous Epithelial Cell,Urine 1 /hpf (0-5); Urobilinogen,Urine Negative mg/dL (0.0-1.0); WBC,Urine 1 /hpf (0-5)
[2025-07-12 08:02] LABS: Basophils # (Auto) 0.0 Thou/mm3 (0.0-0.2); Basophils % (Auto) 1 % (0-2.5); Eosinophils # (Auto) 0.0 Thou/mm3 (0.0-0.5); Eosinophils % (Auto) 0 % (0-10); Hematocrit 39.1 % (36.0-46.0); Hemoglobin 12.2 g/dL (12.0-16.0); Immature Granulocytes Auto 0.04 Thou/mm3 (0.00-0.00); Lymphocytes # (Auto) 0.7 Thou/mm3 (1.0-4.8); Lymphocytes % (Auto) 8 % (10-50); Mean Corpuscular HGB Conc 31.2 g/dl (31.0-37.0); Mean Corpuscular Hemoglobin 29.4 pg (25.0-35.0); Mean Corpuscular Volume 94 fL (80-100); Monocytes # (Auto) 0.3 Thou/mm3 (0.0-0.8); Monocytes % (Auto) 4 % (0-12); Neutrophils # (Auto) 7.2 Thou/mm3 (1.8-7.7); Neutrophils % (Auto) 87 % (37-80); Nucleated Red Blood Cell # 0.00 Thou/mm3 (0.00-0.00); Nucleated Red Blood Cell % 0 /100 WBC (0); Platelet Count 146 Thou/mm3 (140-440); RDW Standard Deviation 45.4 fL (36.4-46.3); Red Blood Count 4.15 Miln/mm3 (4.00-5.20); White Blood Count 8.3 Thou/mm3 (3.6-11.0)
[2025-07-12 08:14] LABS: Anion Gap 8 (7-16); BUN/Creatinine Ratio 13 Ratio (12-20); Blood Urea Nitrogen 14 mg/dL (9-23); Calcium 9.3 mg/dL (8.3-10.6); Carbon Dioxide > 40.0 mMol/L (20.0-31.0); Cardiac Risk Estimate 3.0 RATIO (3.7-5.6); Chloride 97 mMol/L (98-107); Cholesterol 166 mg/dL (132-200); Creatinine (Component) 1.1 mg/dL (0.6-1.3); Estimated Creatinine Clearance 40.4 mL/min (>60); Glucose 149 mg/dL (74-106); HDL Cholesterol 55 mg/dL (40-60); LDL Cholesterol,Calculated 96 mg/dL (0-130); Magnesium 2.1 mg/dL (1.6-2.6); Osmolality,Calculated 292 (275-295); Phosphorous 3.8 mg/dL (2.4-5.1); Potassium 3.5 mMol/L (3.4-5.1); Sodium 145 mMol/L (136-145); Triglycerides 73 mg/dL (30-150); eGFR 48 See Note
--- NOTE | 2025-07-12 08:34 | PC.SS ---
This OCCUPATIONAL WORK EXPERIENCE TEACHER internal grinder tender went to patient bedside completed initial assessment with patient, her grandson Quique Regalado was at bedside. Patient is awake with clear speech able to participate. Patient was able to confirm home address [facility] and telephone number [phone]. Patient confirmed Valeria Regalado is her emergency contact telephone number [phone], patient states when she is discharged Valeria or her grandadrian Lei will be transporting her home. Patient PCP is Dr. Pacheco @ [facility] and lamp wirer is Dr. Triplett and her pharmacy is [facility] on [address]. Patient states she does not have advanced directive or POA. She states she uses a walker and a w/chair at home and uses )2. No questions or concerns from patient.
--- NOTE | 2025-07-12 09:02 | PC.NURSE ---
CALLED TO NOTIFY THAT THERES NO APTT/INR ON THIS PATIENT,PER ORDER FOR APTT/INR AND OK TO STILL GIVE ELIQIUS
[2025-07-12] MEDS: APIXABAN 2.5 MG TABLET PO ×2 (09:12→20:57)
[2025-07-12] MEDS: DOCUSATE SOD 100 MG CAPSULE PO (09:12)
[2025-07-12 10:07] LABS: INR 1.1 (0.9-1.3); Partial Thromboplastin Time 34.7 Seconds (22.0-36.0); Prothrombin Time 11.5 Seconds (9.0-12.2)
--- NOTE | 2025-07-12 13:47 | PD.RESPRO ---
Documentation for date of: 07/12/25 Subjective Subjective Interval history: Talked to patient's son. He noted that patient started to use oxygen ever since she was admitted to the hospital about 3 weeks ago. Based on chart review, the patient was admitted on 06/06/2025 due to new onset A fib with shortness of breathe and was on 4L of oxygen. When the patient was discharged, she has been constantly usng 2L of oxygen. Tried to breathe in room air, but her oxygen level keep desaturating to 80s. Patient will continue on IV furosimide 40mg qd, Eliquis 2.5mg po bid and Carvedilol 25mg qd. Ordered ABG. Currently, 93% O2 saturation on Oxy Mask 2L Labs reviewed and patient examined at the bedside. Denies chest pain, palpation, abdominal pain fevers or chills. Exam Vital Signs Temp Pulse Resp BP Pulse Ox O2 Del Method O2 Flow Rate 97.8 F 85 19 93/64 93 L Oxy Mask 2 07/12/25 12:32 07/12/25 12:32 07/12/25 12:32 07/12/25 12:32 07/12/25 12:32 07/12/25 12:32 07/12/25 12:32 FiO2 5 07/12/25 05:38 Narrative Exam General: Frail, elderly, AAO x3 Eye: Normal conjunctiva, no scleral icterus HENT: Normocephalic, atraumatic, hearing intact to conversation at normal volume, moist oral mucosa Neck: Supple, non-tender, no JVD, no lymphadenopathy Lungs: symmetric chest rise, No wheezing, rhonchi, crackles, Reduced breathe sound at lung bases. Heart: Peripheral pulses intact bilaterally, Regular Rate and Rhythm. Abdomen: Soft, non-tender, non-distended, no palpable masses Musculoskeletal: Normal range of motion and strength, No cyanosis or edema, No visible joint swelling Skin: Skin is warm, dry, no rashes or lesions. Psychiatric: Cooperative, appropriate mood and affect, Awake and alert, not agitated Neuro: Cranial nerves II-XII grossly intact. Sensations intact to light touch. Objective Labs 07/13/25 05:13 07/13/25 05:13 Labs: Laboratory Results - last 24 hr 07/12/25 07/12/25 07/12/25 04:30 06:12 07:31 WBC 9.9 8.3 RBC 4.31 4.15 Hgb 12.8 12.2 Hct 40.8 39.1 MCV 95 94 MCH 29.7 29.4 MCHC 31.4 31.2 RDW Std Deviation 46.3 45.4 Plt Count 147 D 146 Neut % (Auto) 86 H 87 H Lymph % (Auto) 7 L 8 L [place] % (Auto) 5 4 Eos % (Auto) 1 0 Baso % (Auto) 1 1 Neut # (Auto) 8.5 H 7.2 Lymph # (Auto) 0.7 L 0.7 L [place] # (Auto) 0.5 0.3 Eos # (Auto) 0.1 0.0 Baso # (Auto) 0.1 0.0 Immature Gran # (Auto) 0.03 H 0.04 H Absolute Nucleated RBC 0.00 0.00 Immature Gran % 0 1 H Nucleated RBC % 0 0 PT 11.5 INR 1.1 APTT 34.7 Sodium 144 145 Potassium 3.5 3.5 Chloride 99 97 L Carbon Dioxide 36.2 H > 40.0 H Anion Gap 9 8 BUN 13 14 Creatinine 1.0 1.1 Estim Creat Clear Calc 44.4 L 40.4 L eGFR 54 L 48 L BUN/Creatinine Ratio 13 13 Glucose 161 H 149 H Calculated Osmolality 289 292 Calcium 9.5 9.3 Corrected Calcium 9.5 Phosphorus 3.8 Magnesium 2.1 Total Bilirubin 0.6 AST 14 ALT < 7 L Alkaline Phosphatase 55 Troponin I < 0.020 B-Natriuretic Peptide 495 H* Total Protein 6.7 Albumin 4.5 Globulin 2.2 L Albumin/Globulin Ratio 2.0 Triglycerides 73 Cholesterol 166 LDL Cholesterol, Calc 96 HDL Cholesterol 55 Cholesterol/HDL Ratio 3.0 L Lipase 19 Ur Collection Type Clean Catch Urine Color Lt-Yellow Urine Clarity Clear Urine pH 7.0 Ur Specific [place] 1.010 Urine Protein Negative Urine Glucose (UA) Negative Urine Ketones Negative Urine Blood Negative Urine Nitrite Negative Urine Bilirubin Negative Urine Urobilinogen (Auto) Negative Ur Leukocyte Esterase Negative Urine RBC 1 Urine WBC 1 Ur Squamous Epith Cells 1 Urine Bacteria Rare Quality Measures Quality Measures none Advance care planning discussed with:: patient and other Assessment & Plan Assessment Current Active Medications: Generic Name Dose Route Start Last Admin Trade Name Freq PRN Reason Stop Dose Admin Acetaminophen 650 mg 07/12/25 05:44 Acetaminophen 325 Mg Tablet PO 08/11/25 05:43 Q6H PRN Fever >100.4 Acetaminophen 650 mg 07/12/25 05:44 Acetaminophen 325 Mg Tablet PO 08/11/25 05:43 Q6H PRN PAIN SCALE 1-3 (mild Apixaban 2.5 mg 07/12/25 09:00 07/12/25 09:12 Apixaban 2.5 Mg Tablet PO 08/11/25 08:59 2.5 mg BID ISABELLA Administration Carvedilol 25 mg 07/12/25 09:00 07/12/25 09:14 Carvedilol 12.5 Mg Tablet PO 08/11/25 08:59 25 mg QDAY ISABELLA Administration Docusate Sodium 100 mg 07/12/25 09:00 07/12/25 09:12 Docusate Sod 100 Mg Capsule PO 08/11/25 08:59 100 mg QDAY ISABELLA Administration Protocol Furosemide 40 mg 07/12/25 06:00 07/12/25 05:59 Furosemide Inj 10 Mg/Ml 4ml Vial IVP 08/11/25 05:59 Not Given BIDD ISABELLA Ondansetron HCl 4 mg 07/12/25 05:44 Ondansetron Inj 2 Mg/Ml Inj 2 Ml IVP 08/11/25 05:43 Q6H PRN NAUSEA OR VOMITING Protocol Sennosides 1 tab 07/12/25 09:00 07/12/25 09:12 Senna Tablet PO 08/11/25 08:59 1 tab QDAY ISABELLA Administration Protocol Plan This is a 89-year-old old female with past medical history of hypertension, chronic back pain was brought to the hospital with chief complaints of Worsening progressive shortness of breath since 2 days. She was admitted for CHF exacerbation. #Acute hypoxic respiratory failure # CHF exacerbation # HFpEF(EF 50 to 55%-06/06) -Progressive worsening of shortness of breath, orthopnea -Bilateral crackles on lung bases, ankle edema -BNP 495, chest x-ray showing bilateral pleural effusion and pulmonary edema at lung bases. -Compliant with her home medication. -Given furosemide IV 80 mg in ED for her pulmonary edema. Plan: ?Starting on IV furosemide 40 mg daily ?Strict input and output and weight monitoring ?Fluid restriction on 1500 mL ?Starting on cardiac diet # A-fib on rate control A-fib was diagnosed on last hospitalization on 06/06 Denies any chest pain, chest tightness but endorses occasional palpitations Taking Eliquis 2.5 mg twice daily at home ?Continue her home medication ?Follow-up with PT/INR values. # Hypertension Initial blood pressure was 195/114 current blood pressure at 5:40 AM is 131/88 ?continuing her home medication carvedilol 25 mg daily ?Continue to monitor. Code status: Full DVT prophylaxis: On Eliquis Diet: Cardiac diet Lines: PIV Disposition: Tele Assessment and plan discussed with my attending physician Dr. Wilkinson and Dr. Koo (PGY-2) Dr. Gutierrez (PGY-1) - Internal medicine resident Attending Provider Attestation/Addendum I have examined the patient, reviewed labs and imaging findings, discussed the case with the resident(s), and reviewed entered orders. I agree with the plan of care as outlined in this note, with these additional summaries/recommendations: Patient seen at bedside. Patient admitted overnight for acute hypoxic respiratory failure and HFpEF exacerbation. Patient was started on IV diuresis. Bicarb noted to be elevated on chemistry panel. ABG obtained which showed hypercapnia to 71 with normal pH. Patient appears to be a chronic CO2 retainer. No prior history of COPD per patient. Will give breathing treatments and steroids although will defer BiPAP for now given CO2 retention appears chronic. If patient worsens low threshold to start BiPAP. Patient has underlying chronic atrial fibrillation. Continue home Eliquis. Patient presented with hypertensive urgency which has significantly improved. Continue home antihypertensives. Continue supplemental oxygen and wean as tolerated. Patient updated on the plan and agreement. All questions answered satisfaction. Please see residents note for additional details and management. Dr. Minh MD
[2025-07-12 14:03] LABS: Base Excess 11 (-3-3); HCO3 40 mEq/L (20-26); O2 Saturation 96 % (91-98); PCO2 72 mmHg (32.0-48.0); PO2 81 mmHg (83-108); pH, Arterial 7.35 (7.35-7.45)
[2025-07-12 14:12] LABS: Allen Test Performed/OK; Inspired O2, VO2 Liters 2 L/min; Puncture Site Right Radial
[2025-07-12] MEDS: FUROSEMIDE INJ 10 MG/ML 4ML VIAL 40 MG IVP (17:54)
[2025-07-12] MEDS: ACETAMINOPHEN 325 MG TABLET 650 MG PO (18:23)
[2025-07-12] MEDS: ALBUTEROL/IPRATROPIUM (Duoneb) RT SOL 3 ML NEBU INH (19:57)
[2025-07-12 20:26] LABS: Base Excess 12 (-3-3); HCO3 40 mEq/L (20-26); O2 Saturation 96 % (91-98); PCO2 71 mmHg (32.0-48.0); PO2 78 mmHg (83-108); pH, Arterial 7.36 (7.35-7.45)
[2025-07-12 20:31] LABS: Inspired O2, VO2 Liters 3 L/min
[2025-07-12 20:32] LABS: Allen Test Performed/OK; Puncture Site Right Radial
--- NOTE | 2025-07-12 22:57 | PC.NURSE ---
REPORT GIVEN TO JEFFREY HILL.
[2025-07-13] VITALS (13 sets, daily range): BP systolic 115–136; BP diastolic 65–91; PULSE 72–114; RESP 14–96; TEMP 36.1–36.6; O2SAT 92–100; BMI 34.9; BMI 12.0
[2025-07-13] MEDS: ALBUTEROL/IPRATROPIUM (Duoneb) RT SOL 3 ML NEBU INH ×4 (00:18→19:35)
[2025-07-13] MEDS: FUROSEMIDE INJ 10 MG/ML 4ML VIAL 40 MG IVP ×2 (05:22→17:45)
[2025-07-13 06:35] LABS: Basophils # (Auto) 0.0 Thou/mm3 (0.0-0.2); Basophils % (Auto) 0 % (0-2.5); Eosinophils # (Auto) 0.0 Thou/mm3 (0.0-0.5); Eosinophils % (Auto) 0 % (0-10); Hematocrit 38.0 % (36.0-46.0); Hemoglobin 11.8 g/dL (12.0-16.0); Immature Granulocytes Auto 0.02 Thou/mm3 (0.00-0.00); Lymphocytes # (Auto) 0.4 Thou/mm3 (1.0-4.8); Lymphocytes % (Auto) 9 % (10-50); Mean Corpuscular HGB Conc 31.1 g/dl (31.0-37.0); Mean Corpuscular Hemoglobin 29.9 pg (25.0-35.0); Mean Corpuscular Volume 96 fL (80-100); Monocytes # (Auto) 0.0 Thou/mm3 (0.0-0.8); Monocytes % (Auto) 1 % (0-12); Neutrophils # (Auto) 4.2 Thou/mm3 (1.8-7.7); Neutrophils % (Auto) 90 % (37-80); Nucleated Red Blood Cell # 0.00 Thou/mm3 (0.00-0.00); Nucleated Red Blood Cell % 0 /100 WBC (0); Platelet Count 147 Thou/mm3 (140-440); RDW Standard Deviation 46.5 fL (36.4-46.3); Red Blood Count 3.95 Miln/mm3 (4.00-5.20); White Blood Count 4.6 Thou/mm3 (3.6-11.0)
[2025-07-13 06:41] LABS: INR 1.1 (0.9-1.3); Prothrombin Time 11.8 Seconds (9.0-12.2)
[2025-07-13 07:00] LABS: Anion Gap 7 (7-16); BUN/Creatinine Ratio 18 Ratio (12-20); Blood Urea Nitrogen 18 mg/dL (9-23); Calcium 9.4 mg/dL (8.3-10.6); Carbon Dioxide 39.2 mMol/L (20.0-31.0); Cardiac Risk Estimate 3.1 RATIO (3.7-5.6); Chloride 96 mMol/L (98-107); Cholesterol 165 mg/dL (132-200); Creatinine (Component) 1.0 mg/dL (0.6-1.3); Estimated Creatinine Clearance 44.4 mL/min (>60); Glucose 151 mg/dL (74-106); HDL Cholesterol 54 mg/dL (40-60); LDL Cholesterol,Calculated 97 mg/dL (0-130); Magnesium 2.1 mg/dL (1.6-2.6); Osmolality,Calculated 288 (275-295); Phosphorous 4.2 mg/dL (2.4-5.1); Potassium 3.8 mMol/L (3.4-5.1); Sodium 142 mMol/L (136-145); Thyroid Stimulating Hormone 0.44 uIU/mL (0.55-4.78); Triglycerides 68 mg/dL (30-150); eGFR 54 See Note
[2025-07-13] MEDS: APIXABAN 2.5 MG TABLET PO ×2 (08:23→20:02)
[2025-07-13] MEDS: DOCUSATE SOD 100 MG CAPSULE PO (08:24)
[2025-07-13 08:35] LABS: Free T4 (Free Thyroxine) 0.91 ng/dL (0.89-1.76)
[2025-07-13] MEDS: ACETAMINOPHEN 325 MG TABLET 650 MG PO ×2 (08:37→20:02)
--- NOTE | 2025-07-13 09:22 | PC.SS ---
Addendum entered by Irene Parkinson 07/13/25 14:52: Wean off O2. On IV diuresis. Original Note: Follow up note: PT evaluation pending. Pt is possible d/c home today.
--- NOTE | 2025-07-13 10:00 | PD.RESPRO ---
Documentation for date of: 07/13/25 Subjective Subjective Interval history: Continue Duoneb and IV Solumedrol. Unlikely pneumonia. Patient not on antibiotics. Afib under control. 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 Labs reviewed and patient examined at the bedside. Denies chest pain, palpation, SOB, abdominal pain, N/V, fevers or chills. Exam Vital Signs Temp Pulse Resp BP Pulse Ox O2 Del Method O2 Flow Rate 96.9 F 72 18 136/65 H 99 Oxy Mask 6 07/13/25 08:00 07/13/25 08:24 07/13/25 08:00 07/13/25 08:24 07/13/25 08:00 07/13/25 08:00 07/13/25 08:00 FiO2 5 07/13/25 04:00 Narrative Exam General: Frail, elderly, AAO x3 Eye: Normal conjunctiva, no scleral icterus HENT: Normocephalic, atraumatic, hearing intact to conversation at normal volume, moist oral mucosa Neck: Supple, non-tender, no JVD, no lymphadenopathy Lungs: symmetric chest rise, No wheezing, rhonchi, crackles, Reduced breathe sound at lung bases. Heart: Peripheral pulses intact bilaterally, Regular Rate and Rhythm. Abdomen: Soft, non-tender, non-distended, no palpable masses Musculoskeletal: Normal range of motion and strength, No cyanosis or edema, No visible joint swelling Skin: Skin is warm, dry, no rashes or lesions. Psychiatric: Cooperative, appropriate mood and affect, Awake and alert, not agitated Neuro: Cranial nerves II-XII grossly intact. Sensations intact to light touch. Objective Labs 07/14/25 04:54 07/14/25 04:54 Labs: Laboratory Results - last 24 hr 07/12/25 07/12/25 07/12/25 07:31 14:00 20:15 WBC RBC Hgb Hct MCV MCH MCHC RDW Std Deviation Plt Count Neut % (Auto) Lymph % (Auto) [place] % (Auto) Eos % (Auto) Baso % (Auto) Neut # (Auto) Lymph # (Auto) [place] # (Auto) Eos # (Auto) Baso # (Auto) Immature Gran # (Auto) Absolute Nucleated RBC Immature Gran % Nucleated RBC % PT 11.5 INR 1.1 APTT 34.7 Puncture Site Right Radial Right Radial ABG pH 7.35 7.36 ABG pCO2 72 H* 71 H* ABG pO2 81 L 78 L ABG HCO3 40 H 40 H ABG O2 Saturation 96 96 ABG Base Excess 11 H 12 H Oxygen Liter Flow 2 3 Sodium Potassium Chloride Carbon Dioxide Anion Gap BUN Creatinine Estim Creat Clear Calc eGFR BUN/Creatinine Ratio Glucose Calculated Osmolality Calcium Phosphorus Magnesium Triglycerides Cholesterol LDL Cholesterol, Calc HDL Cholesterol Cholesterol/HDL Ratio TSH Free T4 07/13/25 05:13 WBC 4.6 D RBC 3.95 L Hgb 11.8 L Hct 38.0 MCV 96 MCH 29.9 MCHC 31.1 RDW Std Deviation 46.5 H Plt Count 147 Neut % (Auto) 90 H Lymph % (Auto) 9 L [place] % (Auto) 1 Eos % (Auto) 0 Baso % (Auto) 0 Neut # (Auto) 4.2 Lymph # (Auto) 0.4 L [place] # (Auto) 0.0 Eos # (Auto) 0.0 Baso # (Auto) 0.0 Immature Gran # (Auto) 0.02 H Absolute Nucleated RBC 0.00 Immature Gran % 0 Nucleated RBC % 0 PT 11.8 INR 1.1 APTT Puncture Site ABG pH ABG pCO2 ABG pO2 ABG HCO3 ABG O2 Saturation ABG Base Excess Oxygen Liter Flow Sodium 142 Potassium 3.8 Chloride 96 L Carbon Dioxide 39.2 H Anion Gap 7 BUN 18 Creatinine 1.0 Estim Creat Clear Calc 44.4 L eGFR 54 L BUN/Creatinine Ratio 18 Glucose 151 H Calculated Osmolality 288 Calcium 9.4 Phosphorus 4.2 Magnesium 2.1 Triglycerides 68 Cholesterol 165 LDL Cholesterol, Calc 97 HDL Cholesterol 54 Cholesterol/HDL Ratio 3.1 L TSH 0.44 L Free T4 0.91 ABG Interpretation ABG results: 07/12/25 07/12/25 14:00 20:15 ABG pH 7.35 7.36 ABG pCO2 72 H* 71 H* ABG pO2 81 L 78 L ABG HCO3 40 H 40 H ABG O2 Saturation 96 96 ABG Base Excess 11 H 12 H Quality Measures Quality Measures none Advance care planning discussed with:: patient and other Assessment & Plan Assessment Current Active Medications: Generic Name Dose Route Start Last Admin Trade Name Freq PRN Reason Stop Dose Admin Acetaminophen 650 mg 07/12/25 05:44 07/12/25 18:23 Acetaminophen 325 Mg Tablet PO 08/11/25 05:43 650 mg Q6H PRN Administration Fever >100.4 Acetaminophen 650 mg 07/12/25 05:44 07/13/25 08:37 Acetaminophen 325 Mg Tablet PO 08/11/25 05:43 650 mg Q6H PRN Administration PAIN SCALE 1-3 (mild Albuterol/Ipratropium 3 ml 07/12/25 19:00 07/13/25 06:43 Albuterol/Ipratropium (Duoneb) Rt Cindy 3 Ml Nebu INH 08/11/25 18:59 3 ml Q6HRRT ISABELLA Administration Apixaban 2.5 mg 07/12/25 09:00 07/13/25 08:23 Apixaban 2.5 Mg Tablet PO 08/11/25 08:59 2.5 mg BID ISABELLA Administration Carvedilol 25 mg 07/12/25 09:00 07/13/25 08:24 Carvedilol 12.5 Mg Tablet PO 08/11/25 08:59 25 mg QDAY ISABELLA Administration Docusate Sodium 100 mg 07/12/25 09:00 07/13/25 08:24 Docusate Sod 100 Mg Capsule PO 08/11/25 08:59 100 mg QDAY ISABELLA Administration Protocol Furosemide 40 mg 07/12/25 06:00 07/13/25 05:22 Furosemide Inj 10 Mg/Ml 4ml Vial IVP 08/11/25 05:59 40 mg BIDD ISABELLA Administration Methylprednisolone Sodium Succinate 40 mg 07/12/25 16:30 07/13/25 08:24 Methylprednisolone Sod Succ 40 Mg/Ml Vial IVP 07/19/25 16:29 40 mg QDAY ISABELLA Administration Ondansetron HCl 4 mg 07/12/25 05:44 Ondansetron Inj 2 Mg/Ml Inj 2 Ml IVP 08/11/25 05:43 Q6H PRN NAUSEA OR VOMITING Protocol Sennosides 1 tab 07/12/25 09:00 07/13/25 08:24 Senna Tablet PO 08/11/25 08:59 1 tab QDAY ISABELLA Administration Protocol Plan This is a 89-year-old old female with past medical history of hypertension, chronic back pain was brought to the hospital with chief complaints of Worsening progressive shortness of breath since 2 days. She was admitted for CHF exacerbation. #Acute hypoxic respiratory failure #Underlying COPD? #CHF exacerbation # HFpEF(EF 50 to 55%-06/06) -Progressive worsening of shortness of breath, orthopnea -Bilateral crackles on lung bases, ankle edema -BNP 495, chest x-ray showing bilateral pleural effusion and pulmonary edema at lung bases. -Compliant with her home medication. -Given furosemide IV 80 mg in ED for her pulmonary edema. -Past ECHO (06/06/2025): Normal left ventricular size and function. Approximate ejection fraction is 50-55%. Normal right ventricular size and function. RVSP 42 mmHg with RAP 8. Moderate HTN. Aortic valve sclerosis without stenosis mild MAC with Mild MR. mild tricuspid regurgitation Plan: ?Starting on IV furosemide 40 mg daily -IV solumedrol -Duoneb as needed ?Strict input and output and weight monitoring ?Fluid restriction on 1500 mL ?Starting on cardiac diet # A-fib on rate control A-fib was diagnosed on last hospitalization on 06/06 Denies any chest pain, chest tightness but endorses occasional palpitations Taking Eliquis 2.5 mg twice daily at home ?Continue her home medication, Eliquis and Coreg ?Follow-up with PT/INR values. # Hypertension Initial blood pressure was 195/114 current blood pressure at 5:40 AM is 131/88 ?continuing her home medication carvedilol 25 mg daily ?Continue to monitor. Code status: Full DVT prophylaxis: On Eliquis Diet: Cardiac diet Lines: PIV Disposition: Tele Assessment and plan discussed with my attending physician Dr. Wilkinson and Dr. Koo (PGY-2) Dr. Gutierrez (PGY-1) - Internal medicine resident Attending Provider Attestation/Addendum I have examined the patient, reviewed labs and imaging findings, discussed the case with the resident(s), and reviewed entered orders. I agree with the plan of care as outlined in this note, with these additional summaries/recommendations: Patient & patient?s son seen at bedside. No acute overnight events. Discussed with patient's son that we have no evidence of pleural effusion at this time. She reports some improvement in shortness of breath. O2 saturation 99% on 6 L. I turned off oxygen while at bedside the patient desatted to 84%. Patients admitted for acute hypoxic respiratory failure and HFpEF exacerbation. Continue IV diuresis. Net neg approx.. 900c. Bicarb noted to be elevated on chemistry panel. ABG obtained which showed hypercapnia to 71 with normal pH. Patient appears to be a chronic CO2 retainer. No prior history of COPD per patient. Continue breathing treatments and steroids although will defer BiPAP for now given CO2 retention appears chronic. If patient worsens low threshold to start BiPAP. Patient has underlying chronic atrial fibrillation. Continue home Eliquis. Patient presented with hypertensive urgency which has significantly improved. Continue home antihypertensives. Continue supplemental oxygen and wean as tolerated. Patient updated on the plan and agreement. All questions answered satisfaction. Please see residents note for additional details and management. Dr. Minh MD
[2025-07-14] VITALS (11 sets, daily range): BP systolic 106–148; BP diastolic 60–99; PULSE 78–115; RESP 15–20; TEMP 36.1–36.9; O2SAT 95–100; BMI 35.2
[2025-07-14] MEDS: ALBUTEROL/IPRATROPIUM (Duoneb) RT SOL 3 ML NEBU INH ×4 (00:05→18:30)
[2025-07-14] MEDS: FUROSEMIDE INJ 10 MG/ML 4ML VIAL 40 MG IVP (05:22)
[2025-07-14 05:24] LABS: Basophils # (Auto) 0.0 Thou/mm3 (0.0-0.2); Basophils % (Auto) 0 % (0-2.5); Eosinophils # (Auto) 0.0 Thou/mm3 (0.0-0.5); Eosinophils % (Auto) 0 % (0-10); Hematocrit 35.8 % (36.0-46.0); Hemoglobin 11.2 g/dL (12.0-16.0); Immature Granulocytes Auto 0.01 Thou/mm3 (0.00-0.00); Lymphocytes # (Auto) 1.0 Thou/mm3 (1.0-4.8); Lymphocytes % (Auto) 15 % (10-50); Mean Corpuscular HGB Conc 31.3 g/dl (31.0-37.0); Mean Corpuscular Hemoglobin 29.8 pg (25.0-35.0); Mean Corpuscular Volume 95 fL (80-100); Monocytes # (Auto) 0.5 Thou/mm3 (0.0-0.8); Monocytes % (Auto) 7 % (0-12); Neutrophils # (Auto) 5.0 Thou/mm3 (1.8-7.7); Neutrophils % (Auto) 77 % (37-80); Nucleated Red Blood Cell # 0.00 Thou/mm3 (0.00-0.00); Nucleated Red Blood Cell % 0 /100 WBC (0); Platelet Count 121 Thou/mm3 (140-440); RDW Standard Deviation 45.8 fL (36.4-46.3); Red Blood Count 3.76 Miln/mm3 (4.00-5.20); White Blood Count 6.4 Thou/mm3 (3.6-11.0)
[2025-07-14 05:51] LABS: Anion Gap 9 (7-16); BUN/Creatinine Ratio 23 Ratio (12-20); Blood Urea Nitrogen 28 mg/dL (9-23); Calcium 9.5 mg/dL (8.3-10.6); Carbon Dioxide > 40.0 mMol/L (20.0-31.0); Chloride 93 mMol/L (98-107); Creatinine (Component) 1.2 mg/dL (0.6-1.3); Estimated Creatinine Clearance 37.0 mL/min (>60); Glucose 138 mg/dL (74-106); Magnesium 2.2 mg/dL (1.6-2.6); Osmolality,Calculated 290 (275-295); Phosphorous 3.6 mg/dL (2.4-5.1); Potassium 3.9 mMol/L (3.4-5.1); Sodium 142 mMol/L (136-145); eGFR 44 See Note
--- NOTE | 2025-07-14 09:09 | PC.CC ---
Pt is open with [facility]
[2025-07-14] MEDS: APIXABAN 2.5 MG TABLET PO ×2 (09:11→20:42)
--- NOTE | 2025-07-14 10:10 | ESPR_ITS ---
<Statement entered by Leonidas Falcon MD - 07/14/25 17:52> Patient was seen and examined at bedside. I agree on the assessment and plan on this note as documented by resident Kenrick Gutierrez DO PGY1. 89-year-old female with past medical history of hypertension, chronic back pain, atrial fibrillation and HFpEF, EF 50 to 55% who presented to [facility] ED on 07/12/2025 with a chief complaint of progressive shortness of breath, patient was recently discharged on 06/08 for CHF exacerbation, established with Dr. Herrera, reports first appointment on 19 July. Patient received Lasix 40 IV twice daily, will be transition to Lasix 40 daily, received more than 1500 cc fluid yesterday, placed on strict fluid restriction. Possible underlying component of COPD, will continue DuoNebs every 6 hours scheduled and IV Solu- Medrol 40 mg IV push daily. Consulted pulmonology for further recommendations on underlying lung etiology, patient has positive history of smoking greater than 40 pack years. Denies using inhalers in the past, no PFTs done echocardiogram 05/2025 shows EF 50 to 55% consistent with HFpEF. Will follow up with Cardiology outpatient, Eliquis to be adjusted by cardiology outpatient to 5mg if needed. Pending pulmonology recommendations, will continue with IV diuresis and COPD management for now. Case discussed with attending Dr. Zane Falcon MD PGY-2 Documentation for date of: 07/14/25 Subjective Subjective Interval history: On 07/12, patient's pH was normal with 7.36. pCO2 high with 71. Considering normal pH with hypercapnia, this has been likely going on chronically. Consulted ICU, Dr. Chinchilla, for possible BiPAP Attempted to wean oxygen from 2L/min to room air, but patient desaturated to 80%, so oxygen was increased back to 2L/min with improvement in SpO2. Decreased Furosemide dose to 20mg bid. Labs reviewed and patient examined at the bedside. Denies chest pain, palpation, abdominal pain, N/V, fevers or chills. Exam Vital Signs Temp Pulse Resp BP Pulse Ox O2 Del Method O2 Flow Rate 97.4 F 97 15 106/60 95 Nasal Cannula 2 07/14/25 08:00 07/14/25 08:00 07/14/25 08:00 07/14/25 08:00 07/14/25 08:00 07/14/25 08:00 07/14/25 08:00 FiO2 5 07/14/25 04:00 Narrative Exam General: Frail, elderly, AAO x3 Eye: Normal conjunctiva, no scleral icterus HENT: Normocephalic, atraumatic, hearing intact to conversation at normal volume, moist oral mucosa Neck: Supple, non-tender, no JVD, no lymphadenopathy Lungs: symmetric chest rise, No wheezing, rhonchi, crackles, Reduced breathe sound at lung bases. Heart: Peripheral pulses intact bilaterally, Regular Rate and Rhythm. Abdomen: Soft, non-tender, non-distended, no palpable masses Musculoskeletal: Normal range of motion and strength, No cyanosis or edema, No visible joint swelling Skin: Skin is warm, dry, no rashes or lesions. Psychiatric: Cooperative, appropriate mood and affect, Awake and alert, not agitated Neuro: Cranial nerves II-XII grossly intact. Sensations intact to light touch. Objective Labs 07/15/25 05:09 07/15/25 05:09 Labs: Laboratory Results - last 24 hr 07/14/25 04:54 WBC 6.4 RBC 3.76 L Hgb 11.2 L Hct 35.8 L MCV 95 MCH 29.8 MCHC 31.3 RDW Std Deviation 45.8 Plt Count 121 L Neut % (Auto) 77 Lymph % (Auto) 15 [place] % (Auto) 7 Eos % (Auto) 0 Baso % (Auto) 0 Neut # (Auto) 5.0 Lymph # (Auto) 1.0 [place] # (Auto) 0.5 Eos # (Auto) 0.0 Baso # (Auto) 0.0 Immature Gran # (Auto) 0.01 H Absolute Nucleated RBC 0.00 Immature Gran % 0 Nucleated RBC % 0 Sodium 142 Potassium 3.9 Chloride 93 L Carbon Dioxide > 40.0 H Anion Gap 9 BUN 28 H Creatinine 1.2 Estim Creat Clear Calc 37.0 L eGFR 44 L BUN/Creatinine Ratio 23 H Glucose 138 H Calculated Osmolality 290 Calcium 9.5 Phosphorus 3.6 Magnesium 2.2 ABG Interpretation ABG results: 07/12/25 07/12/25 14:00 20:15 ABG pH 7.35 7.36 ABG pCO2 72 H* 71 H* ABG pO2 81 L 78 L ABG HCO3 40 H 40 H ABG O2 Saturation 96 96 ABG Base Excess 11 H 12 H Quality Measures Quality Measures VTE prophylaxis Advance care planning discussed with:: patient and other Assessment & Plan Assessment Current Active Medications: Generic Name Dose Route Start Last Admin Trade Name Freq PRN Reason Stop Dose Admin Acetaminophen 650 mg 07/12/25 05:44 07/12/25 18:23 Acetaminophen 325 Mg Tablet PO 08/11/25 05:43 650 mg Q6H PRN Administration Fever >100.4 Acetaminophen 650 mg 07/12/25 05:44 07/13/25 20:02 Acetaminophen 325 Mg Tablet PO 08/11/25 05:43 650 mg Q6H PRN Administration PAIN SCALE 1-3 (mild Albuterol/Ipratropium 3 ml 07/12/25 19:00 07/14/25 06:50 Albuterol/Ipratropium (Duoneb) Rt Cindy 3 Ml Nebu INH 08/11/25 18:59 3 ml Q6HRRT ISABELLA Administration Apixaban 2.5 mg 07/12/25 09:00 07/14/25 09:11 Apixaban 2.5 Mg Tablet PO 08/11/25 08:59 2.5 mg BID ISABELLA Administration Carvedilol 25 mg 07/12/25 09:00 07/14/25 09:14 Carvedilol 12.5 Mg Tablet PO 08/11/25 08:59 Not Given QDAY ISABELLA Docusate Sodium 100 mg 07/12/25 09:00 07/14/25 09:14 Docusate Sod 100 Mg Capsule PO 08/11/25 08:59 Not Given QDAY ISABELLA Protocol Furosemide 20 mg 07/14/25 10:15 Furosemide Inj 10 Mg/Ml 4ml Vial IVP 08/13/25 10:14 BIDD ISABELLA Methylprednisolone Sodium Succinate 40 mg 07/12/25 16:30 07/14/25 09:13 Methylprednisolone Sod Succ 40 Mg/Ml Vial IVP 07/19/25 16:29 40 mg QDAY ISABELLA Administration Ondansetron HCl 4 mg 07/12/25 05:44 Ondansetron Inj 2 Mg/Ml Inj 2 Ml IVP 08/11/25 05:43 Q6H PRN NAUSEA OR VOMITING Protocol Sennosides 1 tab 07/12/25 09:00 07/14/25 09:12 Senna Tablet PO 08/11/25 08:59 1 tab QDAY ISABELLA Administration Protocol Plan This is a 89-year-old old female with past medical history of hypertension, chronic back pain was brought to the hospital with chief complaints of Worsening progressive shortness of breath since 2 days. She was admitted for CHF exacerbation. #Acute hypoxic respiratory failure #Underlying COPD? #CHF exacerbation # HFpEF(EF 50 to 55%-06/06) -Progressive worsening of shortness of breath, orthopnea -Bilateral crackles on lung bases, ankle edema -BNP 495, chest x-ray showing bilateral pleural effusion and pulmonary edema at lung bases. -Compliant with her home medication. -Given furosemide IV 80 mg in ED for her pulmonary edema. -Past ECHO (06/06/2025): Normal left ventricular size and function. Approximate ejection fraction is 50-55%. Normal right ventricular size and function. RVSP 42 mmHg with RAP 8. Moderate HTN. Aortic valve sclerosis without stenosis mild MAC with Mild MR. mild tricuspid regurgitation -On 07/12, patient's pH was normal with 7.36. pCO2 high with 71. Considering normal pH with hypercapnia, this has been likely going on chronically. -Attempted to wean oxygen from 2L/min to room air, but patient desaturated to 80%, so oxygen was increased back to 2L/min with improvement in SpO2. Plan: ?Continue IV furosemide to 40mg qd -IV solumedrol 40mg qd -Duoneb INH Q6HRRT -Consulted ICU, Dr. Chinchilla, for possible BiPAP ?Strict input and output and weight monitoring ?Fluid restriction on 1500 mL ?Starting on cardiac diet # A-fib on rate control A-fib was diagnosed on last hospitalization on 06/06 Denies any chest pain, chest tightness but endorses occasional palpitations Taking Eliquis 2.5 mg twice daily at home ?Continue her home medication, Eliquis and Coreg ?Follow-up with PT/INR values. # Hypertension Initial blood pressure was 195/114 current blood pressure at 5:40 AM is 131/88 ?continuing her home medication carvedilol 25 mg daily ?Continue to monitor. Code status: Full DVT prophylaxis: On Eliquis Diet: Cardiac diet Lines: PIV Disposition: Tele Assessment and plan discussed with my attending physician Dr. Wilkinson and Dr. Falcon (PGY-2) Dr. Gutierrez (PGY-1) - Internal medicine resident Attending Provider Attestation/Addendum I have examined the patient, reviewed labs and imaging findings, discussed the case with the resident(s), and reviewed entered orders. I agree with the plan of care as outlined in this note, with these additional summaries/recommendations: Patient seen at bedside. No acute overnight events. She reports some improvement in shortness of breath. O2 saturation 96% on 4 L. Baseline 02 requirement is intermittent home 02 use with 2L NC. Patients admitted for acute hypoxic & hypercapnic respiratory failure and HFpEF exacerbation. Continue IV diuresis. Bicarb noted to be elevated on chemistry panel. ABG obtained which showed hypercapnia to 71 with normal pH. Patient appears to be a chronic CO2 retainer although to prior VBGs/ABGs to review. Consult in-house pulmonology, recommendations appreciated. No prior history of COPD per patient but was a long life smoker. She denies ever being prescribed inhalers in the past. Continue breathing treatments. If patient worsens low threshold to start BiPAP. Patient has underlying chronic atrial fibrillation. Continue home Eliquis. Patient presented with hypertensive urgency which has significantly improved. Continue home antihypertensives. Continue supplemental oxygen and wean as tolerated. Patient updated on the plan and agreement. All questions answered satisfaction. Please see residents note for additional details and management. Dr. Minh MD
[2025-07-15] VITALS (12 sets, daily range): BP systolic 110–166; BP diastolic 80–99; PULSE 88–124; RESP 14–20; TEMP 36.2–36.5; O2SAT 94–100; BMI 35.2
[2025-07-15] MEDS: ACETAMINOPHEN 325 MG TABLET 650 MG PO (00:12)
[2025-07-15] MEDS: ALBUTEROL/IPRATROPIUM (Duoneb) RT SOL 3 ML NEBU INH ×4 (01:48→18:27)
[2025-07-15 05:37] LABS: Basophils # (Auto) 0.0 Thou/mm3 (0.0-0.2); Basophils % (Auto) 0 % (0-2.5); Eosinophils # (Auto) 0.1 Thou/mm3 (0.0-0.5); Eosinophils % (Auto) 1 % (0-10); Hematocrit 38.8 % (36.0-46.0); Hemoglobin 12.0 g/dL (12.0-16.0); Immature Granulocytes Auto 0.02 Thou/mm3 (0.00-0.00); Lymphocytes # (Auto) 1.7 Thou/mm3 (1.0-4.8); Lymphocytes % (Auto) 24 % (10-50); Mean Corpuscular HGB Conc 30.9 g/dl (31.0-37.0); Mean Corpuscular Hemoglobin 29.5 pg (25.0-35.0); Mean Corpuscular Volume 95 fL (80-100); Monocytes # (Auto) 0.6 Thou/mm3 (0.0-0.8); Monocytes % (Auto) 9 % (0-12); Neutrophils # (Auto) 4.4 Thou/mm3 (1.8-7.7); Neutrophils % (Auto) 65 % (37-80); Nucleated Red Blood Cell # 0.00 Thou/mm3 (0.00-0.00); Nucleated Red Blood Cell % 0 /100 WBC (0); Platelet Count 161 Thou/mm3 (140-440); RDW Standard Deviation 46.6 fL (36.4-46.3); Red Blood Count 4.07 Miln/mm3 (4.00-5.20); White Blood Count 6.8 Thou/mm3 (3.6-11.0)
[2025-07-15 06:09] LABS: Anion Gap 9 (7-16); BUN/Creatinine Ratio 20 Ratio (12-20); Blood Urea Nitrogen 24 mg/dL (9-23); Calcium 9.6 mg/dL (8.3-10.6); Carbon Dioxide > 40.0 mMol/L (20.0-31.0); Chloride 93 mMol/L (98-107); Creatinine (Component) 1.2 mg/dL (0.6-1.3); Estimated Creatinine Clearance 37.2 mL/min (>60); Glucose 122 mg/dL (74-106); Magnesium 2.4 mg/dL (1.6-2.6); Osmolality,Calculated 288 (275-295); Phosphorous 4.1 mg/dL (2.4-5.1); Potassium 3.9 mMol/L (3.4-5.1); Sodium 142 mMol/L (136-145); eGFR 44 See Note
[2025-07-15] MEDS: DOCUSATE SOD 100 MG CAPSULE PO (09:01)
[2025-07-15] MEDS: APIXABAN 2.5 MG TABLET PO ×2 (09:01→20:26)
[2025-07-15] MEDS: FUROSEMIDE INJ 10 MG/ML 4ML VIAL 40 MG IVP (09:02)
--- NOTE | 2025-07-15 14:05 | PD.PUCONS ---
HPI Pulmonology Consult Data of Consult Requesting Physician: Angelo Peña MD Primary Care Provider: Physician No Primary/Family Consult Narrative History of present illness: Patient is a 89-year-old female with past medical history significant for COPD as well as heart failure. Patient admitted with increased shortness of breath. This is recurrent admissions and concern for potential confounding of pulmonary disease along with her heart disease. Pulmonology consulted for additional input. On my further questioning, patient is a former smoker she has quit at some time. She does not have any ongoing exposure. Patient is cared for by her grandson. Her son is also at bedside and asking about further management. Ongoing diuresis to optimize with contraction alkalosis likely compounding her respiratory status. She is requiring oxygen with exertion and at rest. This remains stable. She has not had a previous history of COPD exacerbation. No significant change in mucus production, cough, or dyspnea at baseline except when her fluid overload status gets worse. cc:: cc: Angelo Peña MD Review of Systems Review of Systems Narrative Review of Systems: Per review of system was completed with significant findings including HPI above Past Medical History Past Medical History Comments PMH COMMENT: Respiratory history and past surgical history reviewed. Pertinent findings include HPI above. No significant smoking, alcohol or illicit substance use. Grandson lives with the patient and is the primary caregiver Meds Home Medications and Allergies Home Medications ?Medication ?Instructions ?Recorded ?Confirmed ?Type hydrocodone 7.5 mg-acetaminophen 1 tab PO Q12H PRN pain 06/07/25 07/13/25 History 325 mg tablet apixaban 2.5 mg tablet (Eliquis) 2.5 mg PO BID 07/12/25 07/12/25 History carvedilol 25 mg tablet 25 mg PO DAILY 07/13/25 07/13/25 History furosemide 40 mg tablet 40 mg PO DAILY 07/13/25 07/13/25 History Allergies Allergy/AdvReac Type Severity Reaction Status Date / Time No Known Allergies Allergy Verified 06/06/25 12:26 Exam Vital Signs Temp Pulse Resp BP Pulse Ox O2 Del Method O2 Flow Rate 97.4 F 96 18 143/86 H 100 Nasal Cannula 3 07/16/25 12:00 07/16/25 12:00 07/16/25 12:00 07/16/25 12:00 07/16/25 12:00 07/16/25 12:00 07/16/25 12:00 FiO2 5 07/16/25 08:00 Narrative Exam GEN: Able to speak in full sentences HEENT: Dry mucous membranes NECK: No JVD CHEST: Atraumatic, normal excursion with no accessory muscle use CVS: S1/S2+, no rubs, murmurs, gallops, notable pitting edema PULM: Equal but diminished breath sounds bilaterally ABD: Soft, nontender, nondistended, bowel sounds present EXT: No clubbing or cyanosis NEURO: nonfocal on gross examination PSYCH: Appropriate mood and affect, patient is able to give good history Physical Exam Completion Physical Exam Complete?: Yes Results - Machine Design Engineer Labs 07/16/25 05:19 07/16/25 05:19 Labs: Short CBC 07/16/25 Range/Units 05:19 WBC 6.7 (3.6-11.0) Thou/mm3 Hgb 12.3 (12.0-16.0) g/dL Hct 39.1 (36.0-46.0) % Plt Count 162 (140-440) Thou/mm3 BMP 07/16/25 05:19 Sodium 143 Potassium 3.6 Chloride 96 L Carbon Dioxide > 40.0 H BUN 28 H Creatinine 1.0 Glucose 139 H Calcium 9.6 Liver Function 07/16/25 Range/Units 05:19 Total Bilirubin 0.3 (0.3-1.2) mg/dL AST 14 (0-34) U/L ALT 13 (10-49) U/L Alkaline Phosphatase 50 (46-116) U/L Albumin 4.2 (3.4-4.8) gm/dL ABG Interpretation ABG results: 07/12/25 07/12/25 14:00 20:15 ABG pH 7.35 7.36 ABG pCO2 72 H* 71 H* ABG pO2 81 L 78 L ABG HCO3 40 H 40 H ABG O2 Saturation 96 96 ABG Base Excess 11 H 12 H Assessment & Plan Additional Assessment Additional Assessment: Dyspnea COPD Heart failure with preserved ejection fraction Patient and family counseled extensively at bedside for nearly 25 minutes We discussed potential role of LABA or LAMA as single therapy for COPD This is likely to have limited effect as I suspect majority of her dyspnea is related to her heart failure and deconditioning Patient can use supplemental oxygen as needed especially at night if she desaturates with exertion Patient does not have any need for steroids at this point and is unlikely to optimize her status Careful use of diuretics and judicious use of probiotic and hydrate as inhibitor to optimize bicarb as she likely has a chronic CO2 retainer given her respiratory acidosis on serial blood gas analysis Excessive bicarb due to contraction alkalosis will further reduce respiratory drive and worsen her mentation potentially Counseled on importance of following daily weights and measuring fluid intake to prevent fluid overload which has been the precipitant for her recurrent admissions recently Thank you for allowing me to participate in the care of this patient, I will be available if any further questions should arise.defer ongoing management to cardiology given this is the predisposing condition for her ongoing deconditioning with dyspnea Provider Notation Provider Notation: Although this document has been carefully reviewed, there may still be some phonetic and other typographical errors. These errors are purely grammatical due to imperfections in the software program and should not be construed in any way to compromise the substance of the patient's medical care during this visit. Thank you for the opportunity and privilege in assisting you with this patient's care and management.
--- NOTE | 2025-07-15 14:56 | PC.SS ---
Addendum entered by CHANEL Headley 07/15/25 15:08: CHANEL sent referral for hospital bed via [facility], pending responses from Lynn and Carmina. Original Note: Hospital Bed Patients diagnosis requires positioning of the head or upper body to be elevated more than 30 degrees. Also the diagnosis requires positioning in order to alleviate pain and if the patient requires frequent changes in the body positioning and/or has an immediate need for change in the body position. Pillows and wedges have been considered and ruled out.
--- NOTE | 2025-07-15 15:31 | PC.NURSE ---
Dr Falcon at bedside discussing dc plans for pt per son feels like mother requires another night stay. Per MD will discuss with attending MD and come up with a plan for dc possibly until tomorrow after working with PT.
--- NOTE | 2025-07-15 15:42 | PD.RESDS ---
Planned Discharge Date 07/15/25 DS: Providers Provider Date of admission: 07/12/25 05:37 Primary care physician: Physician No Primary/Family Admitting Provider: Angelo Peña MD Attending Provider on Admission: Angelo Peña MD Consults: 07/12/25 08:07 Referral Physical Therapy Routine Comment: Physician Instructions: 07/14/25 12:27 Consult to Industrial Engineer Routine Comment: Hypercapnia Possible BiPap Consulting Provider: Octavio Chinchilla I Attending Provider on DC: Leonidas Falcon MD Discharging Provider: Leonidas Falcon MD Hospital Course Hospital Course Hospital course: On 07/12, patient's pH was normal with 7.36. pCO2 high with 71. Considering normal pH with hypercapnia, this has been likely going on chronically. Consulted ICU, Dr. Chinchilla, for possible BiPAP Attempted to wean oxygen from 2L/min to room air, but patient desaturated to 80%, so oxygen was increased back to 2L/min with improvement in SpO2. Decreased Furosemide dose to 20mg bid. Labs reviewed and patient examined at the bedside. Denies chest pain, palpation, abdominal pain, N/V, fevers or chills. Time Spent with Patient Time attestation: Total time spent providing and/or coordinating discharge services: Exam Vital Signs Temp Pulse Resp BP Pulse Ox O2 Del Method O2 Flow Rate 97.1 F 91 18 112/85 H 98 Nasal Cannula 2 07/15/25 12:00 07/15/25 12:15 07/15/25 12:15 07/15/25 12:00 07/15/25 12:15 07/15/25 12:00 07/15/25 12:15 FiO2 5 07/14/25 04:00 Discharge Plan Plan Patient Disposition: Home w/HOME HEALTH Patient condition on transfer: Stable Care Plan Goals: - Take furosemide 40 mg daily, maintain close follow-up with cardiology, check weight daily, daily fluid restriction around 1500 to 1800 mL. - Continue carvedilol and Eliquis for atrial fibrillation, discussed with her instrumentation and controls designer regarding her Eliquis dose. - We have prescribed LABA inhaler, use it twice a day, recommend sleep study outpatient. - Use supplemental oxygen 2 L at home, it is very important that you wear your oxygen at all times. - Continue all home medications and other medications as below - Follow-up with your primary care physician within 1 week - Return to emergency department if your symptoms worsen - If you do not have a primary care physician follow-up in [facility] in 1 to 2 weeks. Call [phone] to make an appointment Address: [facility], [address], [address], [place], [address] Prescriptions/Referrals Prescriptions/Med Rec: New Serevent Diskus 50 mcg/dose blister with device 1 inh inhalation BID 30 Days Qty: 60 0RF Continued hydrocodone-acetaminophen 7.5-325 mg tablet 1 tab PO Q12H PRN (Reason: pain) Eliquis 2.5 mg tablet 2.5 mg PO BID furosemide 40 mg tablet 40 mg PO DAILY carvedilol 25 mg tablet 25 mg PO DAILY Referrals: No Primary/Family,Physician [Primary Care Provider] Patient/Caregiver Discharge Instructions Education Materials: AFL/Afib, Coping with Heart Failure, Heart Failure Dc, COPD Meds, If Oxygen Is Prescribed Print Language: Yi Stand Alone Forms: Caryl Award Info., Patient Portal Info Letter Discharge Order Discharge Orders: Discharge (Routine); Ordered 07/15/25 Ordered By: Leonidas Falcon
--- NOTE | 2025-07-15 16:29 | PC.SS ---
SS received a call from Dr. Falcon that pt will need gurney transport. Pt possesses insurance for transport. SS met with pt at bedside who was accompanied by her son. SS explained process for transport. SS explained transport can take anywhere from 3-4hrs to be assigned a transport company. Family expressed they wish to wait till tomorrow as that would be pretty late for pt to get home. SS informed Dr. Falcon who informed SS pt will be om to wait till tomorrow for DC. SS also explained to pt that SS submitted DME referral for a Hospital bed, in which we hope can be processed tomorrow prior to her DC from hospital. RNDebra made aware. SS also informed pt and family, someone will need to be home to receive pt.
--- NOTE | 2025-07-15 18:46 | PD.RESPRO ---
Documentation for date of: 07/15/25 Subjective Subjective Interval history: Patient seen and examined at bedside, no overnight events, denies any current complaints, reports that respiratory status has improved, denies dyspnea. Patient received IV diuresis for the hospitalization, labs and vitals reviewed. Lab findings significant for bicarb greater than 40. Per physical therapy recommendations patient will benefit from shelter facility placement, patient unable to stand and needs aggressive physical therapy however patient refuses shelter facility. Case discussed with patient and patient's family, patient will need hospital bed at home along with home health with aggressive physical therapy. Patient evaluated by calender let off helper, per pulmonology patient will benefit from LABA which may provide some symptom improvement considering there is emphysema/COPD changes in the CT chest from 2021. Initial plan was to discharge patient today, however unable to arrange transport for the day, will be discharged in a.m. Exam Vital Signs Temp Pulse Resp BP Pulse Ox O2 Del Method O2 Flow Rate 97.5 F 96 18 127/85 H 98 Nasal Cannula 2 07/15/25 16:00 07/15/25 18:28 07/15/25 18:28 07/15/25 16:00 07/15/25 18:28 07/15/25 16:00 07/15/25 18:28 FiO2 5 07/14/25 04:00 Narrative Exam General: Frail, elderly, AAO x3 Eye: Normal conjunctiva, no scleral icterus HENT: Normocephalic, atraumatic, hearing intact to conversation at normal volume, moist oral mucosa Neck: Supple, non-tender, no JVD, no lymphadenopathy Lungs: symmetric chest rise, No wheezing, rhonchi, crackles, Heart: Peripheral pulses intact bilaterally, Regular Rate and Rhythm. Abdomen: Soft, non-tender, non-distended, no palpable masses Musculoskeletal: Normal range of motion and strength, No cyanosis or edema, No visible joint swelling Skin: Skin is warm, dry, no rashes or lesions. Psychiatric: Cooperative, appropriate mood and affect, Awake and alert, not agitated Neuro: Cranial nerves II-XII grossly intact. Sensations intact to light touch. Objective Labs 07/16/25 05:19 07/16/25 05:19 Labs: Laboratory Results - last 24 hr 07/15/25 05:09 WBC 6.8 RBC 4.07 Hgb 12.0 Hct 38.8 MCV 95 MCH 29.5 MCHC 30.9 L RDW Std Deviation 46.6 H Plt Count 161 D Neut % (Auto) 65 Lymph % (Auto) 24 Buchanan % (Auto) 9 Eos % (Auto) 1 Baso % (Auto) 0 Neut # (Auto) 4.4 Lymph # (Auto) 1.7 Buchanan # (Auto) 0.6 Eos # (Auto) 0.1 Baso # (Auto) 0.0 Immature Gran # (Auto) 0.02 H Absolute Nucleated RBC 0.00 Immature Gran % 0 Nucleated RBC % 0 Sodium 142 Potassium 3.9 Chloride 93 L Carbon Dioxide > 40.0 H Anion Gap 9 BUN 24 H Creatinine 1.2 Estim Creat Clear Calc 37.2 L eGFR 44 L BUN/Creatinine Ratio 20 Glucose 122 H Calculated Osmolality 288 Calcium 9.6 Phosphorus 4.1 Magnesium 2.4 ABG Interpretation ABG results: 07/12/25 07/12/25 14:00 20:15 ABG pH 7.35 7.36 ABG pCO2 72 H* 71 H* ABG pO2 81 L 78 L ABG HCO3 40 H 40 H ABG O2 Saturation 96 96 ABG Base Excess 11 H 12 H Quality Measures Quality Measures VTE prophylaxis Advance care planning discussed with:: patient and child Assessment & Plan Assessment Current Active Medications: Generic Name Dose Route Start Last Admin Trade Name Freq PRN Reason Stop Dose Admin Acetaminophen 650 mg 07/12/25 05:44 07/12/25 18:23 Acetaminophen 325 Mg Tablet PO 08/11/25 05:43 650 mg Q6H PRN Administration Fever >100.4 Acetaminophen 650 mg 07/12/25 05:44 07/15/25 00:12 Acetaminophen 325 Mg Tablet PO 08/11/25 05:43 650 mg Q6H PRN Administration PAIN SCALE 1-3 (mild Albuterol/Ipratropium 3 ml 07/12/25 19:00 07/15/25 18:27 Albuterol/Ipratropium (Duoneb) Rt Cindy 3 Ml Nebu INH 08/11/25 18:59 3 ml Q6HRRT ISABELLA Administration Apixaban 2.5 mg 07/12/25 09:00 07/15/25 09:01 Apixaban 2.5 Mg Tablet PO 08/11/25 08:59 2.5 mg BID ISABELLA Administration Carvedilol 25 mg 07/12/25 09:00 07/15/25 09:01 Carvedilol 12.5 Mg Tablet PO 08/11/25 08:59 25 mg QDAY ISABELLA Administration Docusate Sodium 100 mg 07/12/25 09:00 07/15/25 09:01 Docusate Sod 100 Mg Capsule PO 08/11/25 08:59 100 mg QDAY ISABELLA Administration Protocol Furosemide 40 mg 07/15/25 09:00 07/15/25 09:02 Furosemide Inj 10 Mg/Ml 4ml Vial IVP 08/14/25 08:59 40 mg QDAY ISABELLA Administration Methylprednisolone Sodium Succinate 40 mg 07/12/25 16:30 07/15/25 09:02 Methylprednisolone Sod Succ 40 Mg/Ml Vial IVP 07/19/25 16:29 40 mg QDAY ISABELLA Administration Ondansetron HCl 4 mg 07/12/25 05:44 Ondansetron Inj 2 Mg/Ml Inj 2 Ml IVP 08/11/25 05:43 Q6H PRN NAUSEA OR VOMITING Protocol Sennosides 1 tab 07/12/25 09:00 07/15/25 09:01 Senna Tablet PO 08/11/25 08:59 1 tab QDAY ISABELLA Administration Protocol Plan This is a 89-year-old old female with past medical history of hypertension, chronic back pain was brought to the hospital with chief complaints of Worsening progressive shortness of breath since 2 days. She was admitted for CHF exacerbation. #Acute hypoxic and hypercapnic respiratory failure #COPD, emphysematous changes on CT chest #CHF exacerbation #HFpEF(EF 50 to 55%-06/06) -Progressive worsening of shortness of breath, orthopnea -Bilateral crackles on lung bases, ankle edema -BNP 495, chest x-ray showing bilateral pleural effusion and pulmonary edema at lung bases. -Compliant with her home medication. -Given furosemide IV 80 mg in ED for her pulmonary edema. -Past ECHO (06/06/2025): Normal left ventricular size and function. Approximate ejection fraction is 50-55%. Normal right ventricular size and function. RVSP 42 mmHg with RAP 8. Moderate HTN. Aortic valve sclerosis without stenosis mild MAC with Mild MR. mild tricuspid regurgitation -On 07/12, patient's pH was normal with 7.36. pCO2 high with 71. Considering normal pH with hypercapnia, this has been likely going on chronically. -Attempted to wean oxygen from 2L/min to room air, but patient desaturated to 80%, so oxygen was increased back to 2L/min with improvement in SpO2. Plan: ?Continue IV furosemide to 40mg qd -IV solumedrol 40mg qd -Duoneb INH Q6HRRT - Pulmonology consulted, patient will benefit from home LABA treatment, will be prescribed ?Strict input and output and weight monitoring ?Fluid restriction on 1500 mL ?Starting on cardiac diet ?Obtain sleep study outpatient # A-fib on rate control A-fib was diagnosed on last hospitalization on 06/06 Denies any chest pain, chest tightness but endorses occasional palpitations Taking Eliquis 2.5 mg twice daily at home, discussed Eliquis dosing with cyber security architect outpatient ?Continue her home medication, Eliquis and Coreg ?Follow-up with PT/INR values. # Hypertension Initial blood pressure was 195/114 current blood pressure at 5:40 AM is 131/88 ?continuing her home medication carvedilol 25 mg daily ?Continue to monitor. Code status: Full DVT prophylaxis: Eliquis Diet: Cardiac diet Lines: PIV Disposition: Tele Assessment and plan discussed with my attending physician Dr. Wilkinson. Dr. Falcon (PGY-2)- Internal medicine resident Attending Provider Attestation/Addendum I have examined the patient, reviewed labs and imaging findings, discussed the case with the resident(s), and reviewed entered orders. I agree with the plan of care as outlined in this note. Dr. Minh MD
[2025-07-16] VITALS (7 sets, daily range): BP systolic 137–143; BP diastolic 86–97; PULSE 84–112; RESP 16–20; TEMP 36–36.5; O2SAT 96–100; BMI 35.2; BMI 35.3
[2025-07-16] MEDS: ALBUTEROL/IPRATROPIUM (Duoneb) RT SOL 3 ML NEBU INH ×2 (00:44→06:40)
[2025-07-16 05:44] LABS: Basophils # (Auto) 0.0 Thou/mm3 (0.0-0.2); Basophils % (Auto) 0 % (0-2.5); Eosinophils # (Auto) 0.0 Thou/mm3 (0.0-0.5); Eosinophils % (Auto) 0 % (0-10); Hematocrit 39.1 % (36.0-46.0); Hemoglobin 12.3 g/dL (12.0-16.0); Immature Granulocytes Auto 0.01 Thou/mm3 (0.00-0.00); Lymphocytes # (Auto) 1.0 Thou/mm3 (1.0-4.8); Lymphocytes % (Auto) 16 % (10-50); Mean Corpuscular HGB Conc 31.5 g/dl (31.0-37.0); Mean Corpuscular Hemoglobin 29.8 pg (25.0-35.0); Mean Corpuscular Volume 95 fL (80-100); Monocytes # (Auto) 0.7 Thou/mm3 (0.0-0.8); Monocytes % (Auto) 11 % (0-12); Neutrophils # (Auto) 4.9 Thou/mm3 (1.8-7.7); Neutrophils % (Auto) 74 % (37-80); Nucleated Red Blood Cell # 0.00 Thou/mm3 (0.00-0.00); Nucleated Red Blood Cell % 0 /100 WBC (0); Platelet Count 162 Thou/mm3 (140-440); RDW Standard Deviation 46.2 fL (36.4-46.3); Red Blood Count 4.13 Miln/mm3 (4.00-5.20); White Blood Count 6.7 Thou/mm3 (3.6-11.0)
[2025-07-16 06:14] LABS: Alanine Aminotransferase 13 U/L (10-49); Albumin, Serum 4.2 gm/dL (3.4-4.8); Albumin/Globulin Ratio 2.2 (1.2-2.2); Alkaline Phosphatase 50 U/L (46-116); Anion Gap 7 (7-16); Aspartate Amino Transferase 14 U/L (0-34); BUN/Creatinine Ratio 28 Ratio (12-20); Bilirubin,Total 0.3 mg/dL (0.3-1.2); Blood Urea Nitrogen 28 mg/dL (9-23); Calcium 9.6 mg/dL (8.3-10.6); Calcium (Corrected) 9.6 mg/dL (8.5-10.1); Carbon Dioxide > 40.0 mMol/L (20.0-31.0); Chloride 96 mMol/L (98-107); Creatinine (Component) 1.0 mg/dL (0.6-1.3); Estimated Creatinine Clearance 44.6 mL/min (>60); Globulin 1.9 gm/dL (2.3-3.5); Glucose 139 mg/dL (74-106); Magnesium 2.5 mg/dL (1.6-2.6); Osmolality,Calculated 292 (275-295); Potassium 3.6 mMol/L (3.4-5.1); Sodium 143 mMol/L (136-145); Total Protein 6.1 gm/dL (5.7-8.2); eGFR 54 See Note
[2025-07-16] MEDS: DOCUSATE SOD 100 MG CAPSULE PO (09:05)
[2025-07-16] MEDS: POTASSIUM CHLORIDE 10% 20 MEQ/15 ML UDC 40 MEQ PO (09:05)
[2025-07-16] MEDS: FUROSEMIDE INJ 10 MG/ML 4ML VIAL 40 MG IVP (09:05)
[2025-07-16] MEDS: APIXABAN 2.5 MG TABLET PO (09:06)
--- NOTE | 2025-07-16 09:17 | ESDS_ITS ---
<Statement entered by Hipolito Jefferson MD - 07/16/25 15:23> Patient seen and examined at bedside. I discussed and supervised with the internal recruiter physician who took care of this patient. I personally saw and examined the patient. I agree with most of the assessment and plan. Plan of care discussed with attending Dr. Wilkinson. Hipolito Jefferson MD PGY-2 Planned Discharge Date 07/16/25 DS: Providers Provider Date of admission: 07/12/25 05:37 Primary care physician: Physician No Primary/Family Admitting Provider: Angelo Peña MD Attending Provider on Admission: Angelo Peña MD Consults: 07/12/25 08:07 Referral Physical Therapy Routine Comment: Physician Instructions: 07/14/25 12:27 Consult to Parking Lot Signaler Routine Comment: Hypercapnia Possible BiPap Consulting Provider: Octavio Chinchilla I Attending Provider on DC: Claudia Gutierrez DO Discharging Provider: Claudia Gutierrez DO DS: Diagnosis Problem List Completed Was Problem List Reviewed/Reconciled?: Yes Hospital Course Hospital Course Hospital course: Summary: This is a 89-year-old old female with past medical history of hypertension, chronic back pain was brought to the hospital with chief complaints of Worsening progressive shortness of breath since 2 days. She was admitted for CHF exacerbation. Patient received IV furosemide, eliquis, and carvedilol. Patient suspected to have COPD. Was given IV steroids and breathing treatment. Patient was discharged upon stabilization of her oxygen requirement. ED course: - Vitals at the time of admission are significant for blood pressure 195/114, DC 106, respiratory 14, temperature 98.6 F, saturating 80% on room air which is progressively improved to 97 on 5 L of nasal cannula - Labs done at the time of admission are significant for BNP 495, HCO3 36.2. - Chest x-ray done at the time of admission showed mild enlargement in cardiac contour, bilateral pulmonary edema, bilateral pleural effusion - EKG done at the time of admission showed atrial fibrillation with rate control 96. Hospital Course Upon admission to the hospital, patient started on IV furosemide 40mg qd, Eliquis 2.5mg bid, and carvedilol 25mg qd. Past ECHO (06/06/3035): showed Normal left ventricular size and function. Approximate ejection fraction is 50-55%. Normal right ventricular size and function. RVSP 42 mmHg with RAP 8. Moderate HTN. Aortic valve sclerosis without stenosis mild MAC with Mild MR. mild tricuspid regurgitation. In combination with past ECHO showing pulmonary hypertension, CXR, Hypercapnia, rat exterminator smoking history and chronic oxygen requirement of 2L, patient was suspected to have underlying COPD. Patient was given Duoneb prn q6hrrt and IV solumedrol 40mg qd. Skiver Machine Operator evaluated the patient as recommended home LABA treatment. On discharge, patient was prescribed LABA. #Acute hypoxic respiratory failure #Underlying COPD? #CHF exacerbation # HFpEF(EF 50 to 55%-06/06) # A-fib on rate control # Hypertension Instructions: - Take furosemide 40 mg daily, maintain close follow-up with cardiology, check weight daily, daily fluid restriction around 1500 to 1800 mL. - Continue carvedilol and Eliquis for atrial fibrillation. - We have prescribed LABA inhaler, use it twice a day, recommend sleep study outpatient. - Use supplemental oxygen 2 L at home, it is very important that you wear your oxygen at all times. - Continue all home medications and other medications as below - Follow-up with your primary care physician within 1 week - Return to emergency department if your symptoms worsen - If you do not have a primary care physician follow-up in [facility] in 1 to 2 weeks. Call [phone] to make an appointment Address: [facility], [address], [address], [place], [address] Assessment and plan discussed with my attending physician Dr. Wilkinson and Dr. Jefferson (PGY-2) Dr. Gutierrez (PGY-1) - Internal medicine resident Status at Discharge Overall status at discharge: patient is progressing back to baseline Time Spent with Patient Time attestation: Total time spent providing and/or coordinating discharge services: Time spent: Greater than 30 minutes Home Health Home Health Referral Orders: 07/15/25 18:19 Home Health Referral Routine Reason For Exam: Physical therapy Home-Bound The patient must either because of illness or injury, need the aid of supportive devices such as crutches, canes, wheelchairs, and walkers; the use of special transportation; or the assistance of another person in order to leave their place of residence; OR have a condition such that leaving his or her home is medically contraindicated. In addition, the patient also meets the following criteria: patient is normally unable to leave the home and leaving home requires considerable taxing effort. Addendum to Home Health Certification Practitioner's Certification: I certify that the patient has been under my care in the hospital and the care of attending physician (see below). We had a [id number] encounter on (see date below). My clinical findings indicate that the patient is home bound per the above criteria and the Home Health Services noted in these orders are medically necessary. The primary reason for the [id number] encounter is related to the fact that the patient requires home health services. Date Certifying [id number] Physician Encounter: 07/12/25 Physician's Name who will Assume Oversight for HH Services: Physician No Primary/Family TOOL SPECIALIST - Community Resources: No PT to Evaluate: Yes PT to evaluate and provide a treatmnet plan to increase patient's mobility and strength. Wound Care: No IV Therapy: No RN Safety Evaluation: Yes RN to evaluate and create a plan of care that will produce positive outcomes. Palliative Treatment: No Palliative treatment and evaluate the need for hospice. Home Health Aide - Personal Care: Yes Home Health Aide to assist with any ADL's. Exam Vital Signs Temp Pulse Resp BP Pulse Ox O2 Del Method O2 Flow Rate 97.7 F 95 18 137/96 H 100 Nasal Cannula 4 07/16/25 08:00 07/16/25 09:05 07/16/25 08:00 07/16/25 09:05 07/16/25 08:00 07/16/25 08:00 07/16/25 08:00 FiO2 5 07/16/25 08:00 Narrative Exam General: Frail, elderly, AAO x3 Eye: Normal conjunctiva, no scleral icterus HENT: Normocephalic, atraumatic, hearing intact to conversation at normal volume, moist oral mucosa Neck: Supple, non-tender, no JVD, no lymphadenopathy Lungs: symmetric chest rise, No wheezing, rhonchi, crackles, Reduced breathe sound at lung bases. Heart: Peripheral pulses intact bilaterally, Regular Rate and Rhythm. Abdomen: Soft, non-tender, non-distended, no palpable masses Musculoskeletal: Normal range of motion and strength, No cyanosis or edema, No visible joint swelling Skin: Skin is warm, dry, no rashes or lesions. Psychiatric: Cooperative, appropriate mood and affect, Awake and alert, not agitated Neuro: Cranial nerves II-XII grossly intact. Sensations intact to light touch. Discharge Plan Plan Patient Disposition: Home w/HOME HEALTH Patient condition on transfer: Stable Care Plan Goals: - Take furosemide 40 mg daily, maintain close follow-up with cardiology, check weight daily, daily fluid restriction around 1500 to 1800 mL. - Continue carvedilol and Eliquis for atrial fibrillation, discussed with her welder production line gas regarding her Eliquis dose. - We have prescribed LABA inhaler, use it twice a day, recommend sleep study outpatient. - Use supplemental oxygen 2 L at home, it is very important that you wear your oxygen at all times. - Continue all home medications and other medications as below - Follow-up with your primary care physician within 1 week - Return to emergency department if your symptoms worsen - If you do not have a primary care physician follow-up in [facility] in 1 to 2 weeks. Call [phone] to make an appointment Address: [facility], [address], [address], [place], [address] Prescriptions/Referrals Prescriptions/Med Rec: New Serevent Diskus 50 mcg/dose blister with device 1 inh inhalation BID 30 Days Qty: 60 0RF Continued hydrocodone-acetaminophen 7.5-325 mg tablet 1 tab PO Q12H PRN (Reason: pain) Eliquis 2.5 mg tablet 2.5 mg PO BID furosemide 40 mg tablet 40 mg PO DAILY carvedilol 25 mg tablet 25 mg PO DAILY Referrals: [facility] [Outside] No Primary/Family,Physician [Primary Care Provider] Patient/Caregiver Discharge Instructions Education Materials: AFL/Afib, Coping with Heart Failure, Heart Failure Dc, COPD Meds, If Oxygen Is Prescribed Print Language: Croatian Stand Alone Forms: Caryl Award Info., Patient Portal Info Letter Discharge Order Discharge Orders: Discharge (Routine); Ordered 07/16/25 Ordered By: Leonidas Falcon Quality Discharge Quality Measures VTE prophylaxis Attestestation Attsana Loredo have examined the patient, reviewed labs and imaging findings, discussed the case with the resident(s), and reviewed entered orders. I agree with the plan of care as outlined in this note. Time Spent: [address] Minh MD
--- NOTE | 2025-07-16 09:36 | PC.CM ---
Pt is open with [place] [facility]. She will need new orders if she discharges home.
--- NOTE | 2025-07-16 11:22 | PC.SS ---
STUNT DOUBLE confirmed with patient discharge plan is to transition home with [facility]. Patient previously aligned with [facility]. Family at bedside confirmed that family members will assist patient with activites of daily living. STUNT DOUBLE confirmed that [facility] will provide hospital bed. Per [facility] staff patient's daughter informed that DME will be delivered today. Family to transport patient home, advised to bring patient's home oxygen for transport.
--- NOTE | 2025-07-17 08:11 | PC.CC ---
HH REF SENT TO [facility] FOR [facility]. WAITING FOR RESPONSE
== END 2025-07-16 12:08 | disposition home health service (06) | DRG 291 ==
LOC: SERX 06:07 → SERHOLD 06:10 → S2NX 23:08
PROVIDERS: Student in an Organized Health Care Education/Training Program; Admitting Provider Student in an Organized Health Care Education/Training Program; Emergency Provider Emergency Medicine; Visit Provider Student in an Organized Health Care Education/Training Program
DX: I11.0 Hypertensive heart disease with heart failure (principal); I50.33 Acute on chronic diastolic (congestive) heart failure; J96.01 Acute respiratory failure with hypoxia; J96.02 Acute respiratory failure with hypercapnia; I48.19 Other persistent atrial fibrillation; I16.0 Hypertensive urgency; I27.20 Pulmonary hypertension, unspecified; I35.8 Other nonrheumatic aortic valve disorders; J44.9 Chronic obstructive pulmonary disease, unspecified; Z79.899 Other long term (current) drug therapy; Z87.891 Personal history of nicotine dependence; Z79.01 Long term (current) use of anticoagulants; Z96.641 Presence of right artificial hip joint; Z99.81 Dependence on supplemental oxygen
CPT/HCPCS: 36415; 36600; 71045; 80048; 80053; 80061; 81001; 82803; 83690; 83735; 83880; 84100; 84439; 84443; 84484; 85025; 85610; 85730; 87811; 93005; 94640; 96374; 96375; 97162; 99283; A9270; J1938; J2919